=== PATIENT | female | born 1965 | race Caucasian/White ===

== ENCOUNTER 2017-03-16 09:22 | Inpatient (IN) | payer OTHER ==
[~2017-03-16] VITALS: Ht 167.6 cm; Wt 137.5 kg
[2017-03-16] VITALS (36 sets, daily range): BP systolic 78–143; BP diastolic 44–97
--- NOTE | ~2017-03-16 | PR ---
[place], [place] PROGRESS NOTE NAME: JEROME WIGGINS UNIT #: [id number] ROOM: 528 DOCTOR: MARIA INES STERN MD BIRTHDATE: [birth year] DOS: 03/23/2017 SUBJECTIVE: She was seen and examined on 03/23/2017, currently ambulating using oxygen supplementation, respiratory symptoms continue to improve progressively. Denies symptoms of chest pain, abdominal pain. The patient underwent biopsy of the left tongue ulcerations successfully by Dr. Lake. She has not been noted with any postoperative complications. OBJECTIVE: VITAL SIGNS: For the patient which has been recorded showed the temperature noted normal, respiratory rate 20, heart rate 81, blood pressure 140/73-148/89. Pulse oxygen saturation of the patient recorded on 3 liters canula 98% saturation. HEENT: No acute change. NECK: Supple. CARDIOVASCULAR: S1, S2 audible. LUNGS: The patient was noted without any wheezing or crackles. ABDOMEN: Soft, nontender. LABORATORY DATA: Chest x-ray done this morning, the patient was personally reviewed, shows continued improvement. The patient was noted in the right upper lung consolidation progressively with a small infiltration remains. No other acute abnormalities were noted. IMPRESSION: 1. The patient has resolving acute pneumonia, mass-like lesion involving the right upper lobe and the superior subsegment of the right lower lobe. 2. Improving acute hypoxic respiratory failure as well. PLAN OF TREATMENT: The Solu-Medrol dose has been already decreased for the patient. Continue current bronchodilators, antibiotics, which were already adjusted based on the culture results. Other supportive therapy, plan and management as in progress. Usual care and treatments. [place], [place] PROGRESS NOTE NAME: JEROME WIGGINS UNIT #: [id number] ROOM: 528 DOCTOR: MARIA INES STERN MD BIRTHDATE: [birth year] MARIA INES ROGERS MD CM:PNTRANS [phone] MARIA INES MAYER MD 03/24/17211 interface
--- NOTE | ~2017-03-16 | PR ---
[place], [place] PROGRESS NOTE NAME: JEROME WIGGINS [facility] #: [id number] UNIT #: [id number] ROOM: 528 DOCTOR: DEJUAN BECKHAM MD BIRTHDATE: [birth year] DOS: 03/24/2017 SUBJECTIVE: The patient is doing better. Her lesion in the left tongue states is feeling much better. She also had a bronchoscopy done, reports are pending. REVIEW OF SYSTEMS: HEENT: No trouble swallowing. No double vision. No loss of vision. No pain. ENT AND RESPIRATORY: No wheeze. No change in voice. No cough. No shortness of breath. No coughing up blood. No epistaxis. CARDIOLOGIC: No chest pain. No dizziness. No irregular heartbeat. No leg edema. No palpitations. No shortness of breath. HEMATOLOGIC AND LYMPH: No past transfusion. No fatigue. No loss of appetite. No easy bruising. GASTROENEROLOGIC: No change in bowel habits. No vomiting blood. No abdominal cramping. No nausea. No vomiting. No diarrhea. No constipation. No blood in stool. FEMALE REPRODUCTIVE: No dyspareunia. No pelvic pain. MUSCULOSKELETAL: No back pain. No muscle pain or weakness. No tingling/numbness. UROLOGIC: No pain with urination. No difficulty urinating. No frequent urination. NEUROLOGIC: No burning pain in feet. No trouble with coordination. No loss of consciousness. No headache. No tingling/numbness. No memory loss. PHYSICAL EXAMINATION: GENERAL: Pleasant woman in no apparent distress. VITAL SIGNS: Stable. She is afebrile. HEENT: Normocephalic, atraumatic. NECK AND THYROID: Supple. No JVD, thyromegaly, or lymphadenopathy. HEART: Normal S1, S2. Regular rate and rhythm. LUNGS: Clear to auscultation and percussion. ABDOMEN: Soft. Nontender, nondistended. Bowel sounds present. EXTREMITIES: Normal ROM. No clubbing. No edema. LABORATORY DATA: White count of 6.2, hemoglobin 8.9, hematocrit 28.9, platelet count of 181,000. From March 22, EGFR more than 60, sodium 139, potassium 3.5, chloride 101, bicarb 35, calcium 8.0. 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 Lesion of the left tongue is still pending. TIBC of 313, iron of 42, saturation 13. ASSESSMENT: 1. Component of iron deficiency anemia. 2. Status post biopsy of the left side of the tongue. 3. Status post bronchoscopy. 4. Right-sided pneumonia. PLAN: We will wait for overall condition to improve. She will continue antibiotics and going to a half-way for that. We will be also starting her on iron pills to take it twice a day. Once overall condition improves and she [place], [place] PROGRESS NOTE NAME: JEROME WIGGINS UNIT #: [id number] ROOM: 528 DOCTOR: DEJUAN BECKHAM MD BIRTHDATE: [birth year] still has lymph nodes in the neck, a CT scan will be done. Ample time was given to the patient to ask me questions. We will follow. DEJUAN BECKHAM MD CM:PNTRANS [phone] DEJUAN BECKHAM MD 03/25/17220 interface
--- NOTE | ~2017-03-16 | CON ---
[place], [place] REPORT OF CONSULTATION NAME: JEROME WIGGINS [facility] #: [id number] UNIT #: [id number] ROOM: [facility] DOCTOR: THOMAS HERRERA MD BIRTHDATE: [birth year] DOS: 03/17/2017 ROOM: [facility] 1. ATTENDING PHYSICIAN: Dr. Landaverde. REASON FOR CONSULTATION: Tongue ulceration. HISTORY OF PRESENT ILLNESS: The patient is a 52-year-old female who was admitted to [facility] because of severe pneumonia. She is currently in the intensive care unit. The patient is receiving antibiotic therapy for her pneumonia and it was noted that she has an ulceration of her tongue. Consultation is requested because of this finding. The patient has a past history of a large cell lymphoma. PAST MEDICAL HISTORY: COPD, hypertension, chronic back pain, history of large cell lymphoma and history of major depression. CURRENT MEDICATIONS: Solu-Medrol, Zithromax, Zosyn, Prilosec, Zocor, vancomycin, albuterol. ALLERGIES: HYDROCODONE AND ACETAMINOPHEN. PHYSICAL EXAMINATION: GENERAL: The patient is awake, alert and oriented. VITAL SIGNS: Temperature 100.0, blood pressure 124/79, respiratory rate 13, pulse rate 91. HEENT: Examination of the oral cavity shows a 3-4 cm ulcerated area in the left lateral oral tongue anterior two-thirds. Nose is clear. Ear is clear. NECK: Shows no palpable adenopathy. IMPRESSION: Tongue ulceration. PLAN: The patient will be scheduled for biopsy of this tongue ulceration next week in the operating room. Case discussed with nursing and the patient. Thank you for this consultation. THOMAS HERRERA MD CM:CONSTR:REPORT OF CONSULTATION 1743 03/17/17 1808 interface
--- NOTE | ~2017-03-16 | PR ---
[place], [place] PROGRESS NOTE NAME: JEROME WIGGINS [facility] #: [id number] UNIT #: [id number] ROOM: 528 DOCTOR: JENN VILLEDA MD BIRTHDATE: [birth year] DOS: 03/24/2017 SUBJECTIVE: The patient is doing fine without any complaint. Denies any chest pains, palpitations, she had some diarrhea, which is resolved with Lomotil. OBJECTIVE: VITAL SIGNS: Graphic trend shows blood pressure 130/68, pulse is 78, respirations 20, temperature 98.6. LUNGS: Clear. HEART: Regular. ABDOMEN: Obese. EXTREMITIES: Without any edema. LABORATORY DATA: White cell count is normal at 6.2, hemoglobin 8.9, hematocrit 28.9, platelets normal. I do not have the basic metabolic panel yet this morning. ASSESSMENT AND PLAN: 1. Acute respiratory failure, resolved. 2. Right-sided pneumonia, improving with normal white cell count. 3. Chronic obstructive pulmonary disease with acute exacerbation, improving. 4. Iron deficiency anemia, medication started. 5. Diarrhea, most likely antibiotic induced. 6. History of lymphoma. 7. Lesion of the tongue, which was biopsied. No report available yet. The patient to go to [facility] today for physical therapy and IV antibiotics. JENN VILLEDA MD CM:PNTRANS [phone] JENN VILLEDA MD 03/25/17 0042 interface
--- NOTE | ~2017-03-16 | PR ---
[place], [place] PROGRESS NOTE NAME: JEROME WIGGINS [facility] #: [id number] UNIT #: [id number] ROOM: 528 DOCTOR: JENN VILLEDA MD BIRTHDATE: [birth year] DOS: 03/23/2017 SUBJECTIVE: The patient is doing fine without any complaints. She underwent her tongue biopsy yesterday. OBJECTIVE: VITAL SIGNS: Graphic trend shows a pressure of 148/73, pulse of 80, respirations 20, temperature 98.2. LUNGS: Diminished breath sounds. HEART: Regular. ABDOMEN: Obese, soft. EXTREMITIES: Without any edema. ASSESSMENT AND PLAN: 1. Right side pneumonia, multifocal, improving clinically as well as radiologically. PICC line was placed and the patient to go to rehab center for continued IV antibiotics. 2. Lesion on the tongue, status post biopsy yesterday. 3. Benign hypertension, controlled. Norvasc was restarted. 4. Chronic obstructive pulmonary disease with centrilobar emphysema with exacerbation, improved. The patient is no longer requiring oxygen supplementation. 5. Acute hypoxic respiratory failure. This has resolved. The patient hopefully can be discharged today. JENN VILLEDA MD CM:PNTRANS [phone] JENN VILLEDA MD 03/24/17 0112 interface
--- NOTE | ~2017-03-16 | PR ---
[place], [place] PROGRESS NOTE NAME: JEROME WIGGINS UNIT #: [id number] ROOM: 528 DOCTOR: DEJUAN BECKHAM MD BIRTHDATE: [birth year] DOS: 03/22/2017 SUBJECTIVE: The patient had a biopsy of the left inguinal area because of the left tongue ulceration, which she tolerated very well. She had a bronch done on Tuesday. PHYSICAL EXAMINATION GENERAL: She is a very pleasant woman in no apparent distress. VITAL SIGNS: Blood pressure is 120/80, heart rate 76, respirations 14. HEENT: Normocephalic, atraumatic NECK AND THYROID: Supple. No JVD, thyromegaly, or lymphadenopathy. HEART: Normal S1, S2. Regular rate and rhythm. LUNGS: Clear to auscultation and percussion. ABDOMEN: Soft. Nontender, nondistended. Bowel sounds present. EXTREMITIES: Normal ROM. No clubbing. No edema. LABORATORY DATA: White count 4.2, hemoglobin 8.7, hematocrit 28.4, platelet count 147,000. BMP of the patient with normal creatinine. Chest x-ray showed resolving pneumonia in the right upper lobe. ASSESSMENT: 1. Status post left inguinal biopsy. 2. Status post bronchoscopy. 3. Improving pneumonia. 4. History of non-Hodgkin lymphoma in 2003, status post chemotherapy with cure. 5. Mild Leukopenia. 6. Anemia of neoplastic disorder. PLAN: We will wait for the biopsy of the tongue as well as the bronch. In the meantime, we will get anemia workup, review peripheral smears. Depending on the biopsy further intervention. She will also need a PET scan. She may be going to for 2 weeks of antibiotic therapy. She will see me as outpatient and depending on that, further intervention discussed. We will follow. Ample time was given for the patient to ask me questions. [place], [place] PROGRESS NOTE NAME: JEROME WIGGINS UNIT #: [id number] ROOM: 528 DOCTOR: DEJUAN BECKHAM MD BIRTHDATE: [birth year] DEJUAN BECKHAM MD CM:PNTRANS [phone] DEJUAN BECKHAM MD 03/23/17 0310 interface
--- NOTE | ~2017-03-16 | CON ---
[place], [place] REPORT OF CONSULTATION NAME: JEROME WIGGINS [facility] #: [id number] UNIT #: [id number] ROOM: [facility] DOCTOR: DEJUAN BECKHAM MD BIRTHDATE: [birth year] DOS: 03/21/2017 HISTORY OF PRESENT ILLNESS: The patient is a pleasant 52-year-old [place] woman, who I remember had a history of non-Hodgkin lymphoma and was treated by me with cure, lost for followup for the last one month, and was seen by Dr. Landaverde' office complaining of increasing shortness of breath, cough, with increased sputum production and hemoptysis. This has been going on for the last 1 month and thought it will get better until she started having hemoptysis and came to see here in the office. Subsequently, she was admitted. Further workup revealed that she has got a lesion and further CT of the chest showed that she has excessive pneumonia in the right side of the lung, has also a lesion in the tongue for which she is ____ biopsy and was consulted for further evaluation and management. PAST MEDICAL HISTORY: Large cell lymphoma, status post chemotherapy, cured in 2009; history of major depression; COPD with heavy nicotine abuse; quit smoking about 2 years ago; history of benign hypertension; chronic back pain with significant hospitalization in 2014 with shortness of ____ and acute respiratory failure; chronic back pain; and benign hypertension. MEDICATIONS: ____ amlodipine, calcium, duloxetine, gabapentin, Prevacid, methadone, naproxen, Percocet, Pravachol, and ____. SOCIAL HISTORY: Nonsmoker, no alcohol or drug abuse. REVIEW OF SYSTEMS: CONSTITUTIONAL: No chills. No fatigue. No fever. No loss of appetite. No night sweats. No weakness. No weight loss. HEENT: No trouble swallowing. No loss of smell. No loss of hearing. No double vision. No pain. No discharge. ENT AND RESPIRATORY: No wheeze. No sore throat. No change in voice. No hearing loss. No nose bleed. No cough. No trouble breathing through nose. No shortness of breath. No coughing up blood. No epistaxis. CARDIOVASCULAR: No chest pain. No dizziness. No irregular heartbeat. No leg edema. No pain in legs while walking. No palpitations. No shortness of breath. DERMATOLOGIC: No acne. No hives. No laceration. No mole. No rash. ENDOCRINE: No cold intolerance. No diabetes. No fatigue. No hot flashes. No polydipsia. No polyuria. No urinating frequently. No weight loss. HEMATOLOGIC AND LYMPH: No fatigue. No easy bruising. GASTROENTEROLOGIC: No change in bowel habits. No indigestion. No frequent bloating. No vomiting blood. No abdominal cramping. No nausea. No heartburn. No vomiting. No abdominal pain. No dysphagia. No diarrhea. No constipation. No blood in stool. FEMALE REPRODUCTIVE: No vaginal itching. No difficulty urinating. No heavy periods. No dyspareunia. No sexually active. No dysmenorrhea. No pelvic pain. No breast pain. No nipple discharge. No abnormal vaginal discharge. No hot flashes. MUSCULOSKELETAL: No back pain. No muscle pain or weakness. No neck pain. No tingling/numbness. No swelling/bruising. No osteoporosis treatment. [place], [place] REPORT OF CONSULTATION NAME: JEROME WIGGINS UNIT #: [id number] ROOM: [facility] DOCTOR: DEJUAN BECKHAM MD BIRTHDATE: [birth year] OPHTHALMOLOGIC: No double vision. No diminished vision. No loss of vision. UROLOGIC: No dysuria. No frequent nighttime urination. No irregular periods. No pain with urination. No difficulty urinating. No blood in urine. No frequent urination. No urinary incontinence. NEUROLOGIC: No loss of sensation in specific body area. No vertigo. No burning pain in feet. No trouble with balance. No trouble with coordination. No loss of consciousness. No loss of feeling/power. No confusion. No headache. No tingling/numbness. PSYCHOLOGIC: No tinnitus. No headaches. No shortness of breath. No weight decrease. No nausea. No vomiting. No abdominal discomfort. No constipation. No diarrhea. No depression. No anxiety. PHYSICAL EXAMINATION: GENERAL: She is a pleasant woman, in no apparent distress. VITAL SIGNS: Stable. She is afebrile. HEENT: Oral mucosa appears intact. The external ears are normal in appearance. Nares are patent without lesions, exudates, erythema, or inflammation. Tongue is symmetrical. Uvula is midline. NECK AND THYROID: Neck supple without palpable masses. Trachea is midline. No thyromegaly. No carotid bruit or JVD. BREASTS: Normal. Nipples unremarkable. No drainage. No lumps felt on either side. HEART: Normal S1, S2, without significant murmur, rub, or gallop. LUNGS: Clear to auscultation and percussion with good air entry bilaterally. The patient is breathing easily without the use of accessory muscles. Diaphragmatic excursions are intact. ABDOMEN: No costovertebral angle tenderness. Soft. No organomegaly or masses. Nontender. No hernias present. Liver and spleen are not palpable. LYMPHATIC: No adenopathy noted in the cervical, supraclavicular, axillary, or inguinal regions. NEUROLOGIC: Nonfocal. Oriented to person, place, and time. MENTAL STATUS: Appropriate for mood and affect. PERIPHERAL PULSES: No varicosities. Femoral and pedal pulses are palpable. EXTREMITIES: Without cyanosis, clubbing, or edema. No gross anomalies. LABORATORY DATA: White count of 3.7, hemoglobin 8.5, hematocrit 27.7, platelet count 120,000. Peripheral smear showed metamyelocytes, monocytes. Glucose of 149, BUN of 19, EGFR more than 60, sodium 140, potassium 4.6, chloride 99, bicarb 35, SGOT is 26, SGPT 35, alkaline phosphatase 43. RADIOLOGY: CT of the chest showed very extensive right upper lobe pneumonia ____ involvement of the superior segment right lower lobe and then ____ more hazy opacity in both lower lobes. Echocardiogram showed LEV of 55%. ASSESSMENT: 1. Status post acute respiratory failure, status post bronchoscopy. 2. Excessive pneumonia in the right side of the lung or multiple IV antibiotics. 3. Abnormal lesion on the underside of the tongue with lymphadenopathy. 4. History of large cell lymphoma, status post chemotherapy with cure in 2009 [place], [place] REPORT OF CONSULTATION NAME: JEROME WIGGINS UNIT #: [id number] ROOM: [facility] DOCTOR: DEJUAN BECKHAM MD BIRTHDATE: [birth year] or before. PLAN: She is going to get a biopsy by Dr. Lake. We will wait for the biopsy to come back. In the meantime, we will review the CAT scans. May need a CT of the neck, PET scan, etc., depending on that, further intervention. She has abnormal peripheral smear. We will keep a close watch at this time. I had a detailed discussion with the patient about it, seemed to understand it. Ample time was given to the patient to ask me questions. We will follow. Thanks for consulting and letting me participate in the care of this interesting patient. DEJUAN BECKHAM MD CM:CONSTR:REPORT OF CONSULTATION 0834 03/21/17 1144 interface
--- NOTE | ~2017-03-16 | CON ---
[place], [place] REPORT OF CONSULTATION NAME: JEROME WIGGINS UNIT #: [id number] ROOM: [facility] DOCTOR: ALLYSSA POPECRIS BIRTHDATE: [birth year] DOS: 03/22/2017 HISTORY OF PRESENT ILLNESS: The patient with known history of non-Hodgkin's lymphoma treated by Dr. Perry apparently was having a PICC line placed and after that it went into the RV and patient was having runs of ventricular tachycardia and it was very positional and we were consulted and Dr. Syed was notified, was continuous absorption process operator. The central line has been pulled back and she had some PVCs, but no more ventricular tachycardia. Currently, the patient she had all the workup for her heart with a stress test within the last 2 years and was normal and her ejection fraction was done recently showed an EF of 50%-55%. PAST MEDICAL HISTORY: ____ chemotherapy, history of major depression, COPD, nicotine abuse, history of hypertension, chronic back pain, significant hospitalizations. MEDICATIONS: Amlodipine, gabapentin, Prevacid, methadone, Naprosyn, Percocet, Pravachol. SOCIAL HISTORY: Nonsmoker, now nonalcohol. REVIEW OF SYSTEMS: CONSTITUTIONAL: No fever, no chills. RESPIRATORY: No shortness of breath. CARDIOVASCULAR: No chest discomfort. No dizziness dermatologically. ENDOCRINE: Intact. NEUROLOGIC: No syncope. PHYSICAL EXAMINATION: GENERAL: She is not in acute distress. VITAL SIGNS: Blood pressure is 130/80. She is in sinus rhythm. HEENT: Unremarkable. NECK: Supple, no JVD. LUNGS: Diminished breath sounds. HEART: Sounds are regular. ABDOMEN: Soft, nontender. NEUROLOGICAL: Appears to be stable. LABORATORY DATA: Electrolytes are within normal limits. EKG shows sinus rhythm with nonspecific ST-T changes. She did have runs of VT when probably irritating to the central line ____ into the right ventricle. IMPRESSION: Status post acute respiratory failure excessive pneumonia, ventricular tachycardia, probably induced by Catheter. RECOMMENDATIONS: I agree with pulling back on the central line. Monitor the heart rate and blood pressure closely becomes symptomatic, we might have to repeat a stress test because of tobacco abuse and we will follow up. [place], [place] REPORT OF CONSULTATION NAME: ROSALIEJEROME Nuñez UNIT #: [id number] ROOM: [facility] DOCTOR: CRIS SPIVEY MD BIRTHDATE: [birth year] CRIS SPIVEY MD CM:CONSTR:REPORT OF CONSULTATION 0819 03/22/17 0940 interface
--- NOTE | ~2017-03-16 | WRIGHTHP ---
[place], [place] PATIENT HISTORY AND PHYSICAL EXAM NAME: JEROME WIGGINS [facility] #: [id number] UNIT #: [id number] ROOM: [facility] DOCTOR: JENN VILLEDA MD BIRTHDATE: [birth year] DATE OF ADMISSION: 03/16/17 HISTORY OF PRESENT ILLNESS: The patient is 52 years old. The patient comes to the office with complaints of minimal shortness of breath, cough, increased sputum production and hemoptysis. The shortness of breath and cough has been going on for a couple of weeks; the hemoptysis just started the day prior to this being seen in the office. She also was quite dizzy and lightheaded and had a hard time ambulating into the office. On examination, her pulse ox was in the low 80s, blood pressure was normal in the office, was admitted. Evaluation revealed that the patient may have acute hypoxic respiratory failure with acute respiratory distress, possible pneumonia with hemoptysis, and so the patient was admitted to the hospital. After admission to the hospital, she was admitted initially to the 5th floor where she became quite hypotensive and was transferred to the ICU and diagnosed with sepsis. After being moved to the ICU, was found to be quite hypotensive, was started on Levophed and increased the IV fluid rate, was also placed on multiple antibiotics. A CT of the chest was done, which showed extensive pneumonia of the right side of the lung. This morning is feeling much better, still does not feel completely up to par, but better than yesterday. Denies having any chest pains or palpitations. She did have a high-grade fever during the night. Unfortunately, I could not give her any Motrin because of her acute renal failure. She does not have any leg edema and has not had any hemoptysis since admission. PAST MEDICAL HISTORY: 1. Significant for hospitalization in 2014 with hoarseness of voice and acute respiratory failure. 2. COPD with heavy nicotine abuse, she has quit smoking about 2 years ago. 3. Benign hypertension. 4. Chronic back pain. 5. Lymphoma, large cell lymphoma that was treated in 2009. 6. History of negative workup for chest pain in 2013. 7. Major depression. MEDICATIONS: Lotrel. MEDICATIONS: Amlodipine, calcium, duloxetine, gabapentin, Prevacid, methadone, naproxen, Percocet, Pravachol, tizanidine. SOCIAL HISTORY: Nonsmoker, does not use any alcohol right now, does not smoke either. PHYSICAL EXAMINATION: VITAL SIGNS: Graphic trend shows a pressure ____/60 this morning, pulse of 94, respirations 16, temperature 98.7. LUNGS: Diminished breath sounds. HEART: Regular. ABDOMEN: Obese, soft. EXTREMITIES: Without any edema. LABORATORY DATA: This admission shows a glucose 155, BUN 33, creatinine 2.33. Electrolytes were normal. WBC count is 8.8, hemoglobin 10.2, hematocrit 32.7, platelets 97. CT of the chest done shows extensive pneumonia on the ____ side of the lung granado. ABG showed a pH of 7.3, pCO2 of 43, pO2 of 69.6, oxygen saturation 92.4. [place], [place] PATIENT HISTORY AND PHYSICAL EXAM NAME: JEROME WIGGINS UNIT #: [id number] ROOM: [facility] DOCTOR: JENN VILLEDA MD BIRTHDATE: [birth year] ASSESSMENT AND PLAN: 1. Acute hypoxic respiratory failure, doing better on oxygen supplementation. 2. Extensive pneumonia on the right side of the lung with sepsis and hypotension. Blood cultures, sputum cultures, atypical studies have all been ordered. Consultation with Dr. Hayward and multiple IV antibiotics have been started. 3. Chronic obstructive pulmonary disease, oxygen dependent. Continue supplementation, does not have an exacerbation. 4. Chronic pain syndrome. Continue pain medications. 5. Acute renal failure. Vigorous IV fluids have been ordered, probably from acute tubular necrosis from hypotension, we will avoid all nephrotoxic medications. JENN VILLEDA MD CM:HISPHYS:PATIENT HISTORY AND PHYSICAL EXAMINATION [phone] JENN VILLEDA MD 03/17/17 1409 LAKEISHA SANZ.R
--- NOTE | ~2017-03-16 | DS ---
[place], [place] DISCHARGE SUMMARY NAME: JEROME WIGGINS [facility] #: [id number] UNIT #: [id number] ROOM: 528 DOCTOR: JENN VILLEDA MD BIRTHDATE: [birth year] DOS: 03/24/2017 DIAGNOSES: 1. Acute hypoxic respiratory failure. 2. Extensive pneumonia, right side of the lung. 3. Chronic obstructive pulmonary disease with acute exacerbation. 4. Lesion of the tongue, status post biopsy. 5. Acute kidney injury. 6. Benign hypertension. 7. Chronic back pain. 8. History of large cell lymphoma. 9. Major depression, recurrent, moderate. MEDICATIONS: On discharge will be Rocephin 1 g IV daily, DuoNeb q.4, prednisone 20 daily for 3 days, 15 daily for 3 days, 10 daily for 3 days, 5 daily for 3 days and discontinued, gabapentin 400 t.i.d., Pravachol 20 daily, methadone 10 t.i.d., Percocet 5 t.i.d. p.r.n., duloxetine 60 daily, Lotrel 5/20 one tablet daily, tizanidine 4 mg daily p.r.n. for muscle spasms, (lansoprazole) Prevacid 30 b.i.d., Os-Rogelio 500 mg 3 times a day. Naprosyn has been discontinued. Please do not start the patient on any nonsteroidals. Iron 325 mg daily. HOSPITAL COURSE: This patient is 52 years old, comes into the office with complaints of increasing shortness of breath and dizziness. Please refer to H and P for details. She was admitted to the hospital, diagnosed with right-sided pneumonia extensive. The patient was placed on IV antibiotics. The patient became quite hypotensive and appeared to be in sepsis, was transferred to the ICU where she remained for the next several days on multiple IV antibiotics. Consultation with Dr. Hayward was obtained. The patient's sputum cultures have come back negative. Bronchoscopy and bronch cultures were also come back negative. With antibiotics, there is steady improvement in her pneumonia, both clinically as well as radiologically. The patient after the bronchoscopy developed acute respiratory failure and had to be intubated and was on a ventilator for about 24 hours. She was extubated and continues to do fine without any problems. The patient has a lesion on her tongue with lymphadenopathy. Dr. Zipfel was consulted. A biopsy was performed. I do not have the results of the biopsy yet. The patient has a history of lymphoma, was seen by Dr. Perry was diagnosed with iron deficiency anemia, iron supplements have been started. Social service has been consulted for discharge planning. The patient will require IV antibiotics for another 7 days along with PT, OT and the patient to go to [facility] for that. The patient's diet is regular. She also developed acute kidney injury. Kidney functions improved with IV fluids and also discontinuation of nephrotoxic medications. The patient's kidney function is back to normal, but should avoid nonsteroidals in the future. The patient to see Dr. Lake and Dr. Hayward as an outpatient as well as the [place], [place] DISCHARGE SUMMARY NAME: JEROME WIGGINS UNIT #: [id number] ROOM: 528 DOCTOR: JENN VILLEDA MD BIRTHDATE: [birth year] Clinic as an outpatient. JENN VILLEDA MD CM:DISCHARG [id number] JENN VILLEDA MD 03/24/17 0907 interface
--- NOTE | ~2017-03-16 | PR ---
[place], [place] PROGRESS NOTE NAME: JEROME WIGGINS [facility] #: [id number] UNIT #: [id number] ROOM: 528 DOCTOR: GORDON PERSAUD MD BIRTHDATE: [birth year] DOS: 03/23/2017 SUBJECTIVE: She had ventricular tachycardia on the monitor because of the tip of the PICC line was in the right ventricle, which was pulled back and ectopy seized. She has not had any breathing difficulty, and without any chest pain or palpitations. No chills, but she has a cough and had expectorated blood a few days ago. Dr. Hayward performed a bronchoscopy today. OBJECTIVE: GENERAL: She is moderately obese, pleasant, alert. She is not tachypneic, but has oxygen on. VITAL SIGNS: Temperature is normal at 98.2, pulse is 84 and regular, respiration 20, blood pressure 130/66. NECK: Normal JVP. LUNGS: Breath sounds are diminished with some adventitious sounds bilaterally. EXTREMITIES: No edema of the lower extremities. IMPRESSION: The patient has pneumonia and is required extended IV antibiotics and a PICC line was placed. No active cardiac problems are present at this time. I saw this patient on behalf of Dr. Lehman. GORDON PERSAUD MD CM:PNTRANS [id number] [phone] GORDON PERSAUD MD 03/24/172107 interface
--- NOTE | ~2017-03-16 | PR ---
[place], [place] PROGRESS NOTE NAME: JEROME WIGGINS UNIT #: [id number] ROOM: [facility] DOCTOR: RONAL POPEJENN BIRTHDATE: [birth year] DOS: 03/22/2017 SUBJECTIVE: The patient is not having any new complaints. During the night, she started developing some episodes of V-tach while she was lying on her side and when she laid flat her heart rate came back to normal, rhythm improved. So, the possibility was that the PICC line was irritating the LV, so the PICC line was pulled out about 5 cm and the patient's rhythm seems to improve after that. She remains without any complaints this morning. OBJECTIVE: VITAL SIGNS: Graphic trend shows a pressure 120/80, pulse of 76, respirations 14, temperature 98.2. LUNGS: Diminished breath sounds, clear. HEART: Regular. ABDOMEN: Obese, soft. EXTREMITIES: Without any edema. LABORATORY DATA: Chest x-ray shows improvement in the pneumonia. BMP this morning, glucose is 90, BUN 18, creatinine 0.68. Electrolytes were normal. WBC count is 4.2, hemoglobin 8.7, hematocrit 28.4, platelets 147. Legionella titers were negative. ASSESSMENT AND PLAN: 1. Extensive pneumonia of the right side of the lung, improving clinically as well as radiologically possibility is that this is mycoplasma infection. 2. An allergic reaction following post-bronchoscopy. Possibility that the patient developed a REACTION EITHER TO VERSED OR THE ROCURONIUM both of them have been dedicated as allergic medications for this patient and should not receive it anymore, especially since we are planning to do another procedure today. 3. History of lymphoma with negative scans recently. 4. Lesion on the tongue left side with the lymphadenopathy submandibular for biopsy today by ____, again avoid Versed and rocuronium. 5. Hypoxic respiratory failure, acute, stable and improved. The patient is getting moved to [facility] today and social service has been consulted for placement for IV antibiotics. 6. Ventricular tachycardia from the LV irritation from a PICC line. PICC line is being pulled out a few more centimeters to avoid further problems. [place], [place] PROGRESS NOTE NAME: JEROME WIGGINS UNIT #: [id number] ROOM: [facility] DOCTOR: RONAL POPE,JENN BIRTHDATE: [birth year] JENN VILLEDA MD CM:PNTRANS [phone] JENN VILLEDA MD 03/22/17 0912 interface
--- NOTE | ~2017-03-16 | PN ---
[place], [place] PROGRESS NOTE NAME: JEROME WIGGINS [facility] #: [id number] UNIT #: [id number] ROOM: [facility] DOCTOR: JENN VILLEDA MD BIRTHDATE: [birth year] DATE: 03/18/17 SUBJECTIVE: The patient is doing fine without any complaints this morning. She is scheduled for a bronchoscopy today. OBJECTIVE: VITAL SIGNS: Blood pressure is 139/83, pulse of 108, respirations 20, temperature 98.0. LUNGS: Diminished breath sounds. No wheezes, rales, or rhonchi heard today. HEART: Regular. ABDOMEN: Obese, soft. EXTREMITIES: Without any edema. I appreciate all consultants' input. ASSESSMENT AND PLAN: 1. Extensive pneumonia of the right side of the lung. Awaiting a bronchoscopy, this most likely responsible for the hemoptysis. 2. Lesion on the tongue, for biopsy by Dr. Lake next week. 3. Acute respiratory failure, hypoxic with acute respiratory distress syndrome with sepsis, which seems to be resolving. IV fluids and IV Levophed will be discontinued and the patient can be transferred out to the [facility]. JENN VILLEDA MD CM:PNTRANS 0720 [id number] JENN VILLEDA MD 03/21/17 1420 LAKEISHA SANZ.R
--- NOTE | ~2017-03-16 | PR ---
[place], [place] PROGRESS NOTE NAME: JEROME WIGGINS UNIT #: [id number] ROOM: [facility] DOCTOR: KEN MAYER MDMARIA INES BIRTHDATE: [birth year] DOS: 03/22/2017 PULMONARY FOLLOWUP NOTE SUBJECTIVE: The patient is noted on 03/22/2017. The patient has been doing well at this time with minimal symptoms of shortness of breath. Denies symptoms of chest pain or any abdominal pain. The patient denies any symptoms of hemoptysis. She has been planned for assessment of the ____ this patient and other areas for possible biopsy for suspected malignancy. The patient to be done by Dr. Lake. OBJECTIVE: VITAL SIGNS: For the patient which has been recorded showed the temperature noted normal, respiratory 14, heart rate 76, blood pressure 120/80. Pulse oxygen saturation noted on ____ liters nasal cannula 95% saturation. HEENT: Showed no acute change. NECK: Supple. CARDIOVASCULAR: S1, S2 audible. LUNGS: Noted without any wheezing or crackles. ABDOMEN: Soft, nontender. LABORATORY DATA: The patient's CBC today: WBC count 4.2, hemoglobin 8.7, hematocrit 28.4, platelet count 147,000. The BMP of the patient noted normal BUN and creatinine, CO2 35. The chest x-ray that was done yesterday for this patient was noted with resolving pneumonia in the right upper lobe. IMPRESSION: 1. Improving acute pneumonia, rule out any underlying malignancy as well. 2. History of non-Hodgkin lymphoma in 2003 which has been treated with chemotherapy, radiation to the spine. 3. Possible malignancy involving the time. 4. Leukopenia and anemia. 5. Acute respiratory failure, which is improving. PLAN OF TREATMENT: Reduce the dose of Solu-Medrol. We will discontinue the vancomycin based on the culture results. Continuation of the IV Zosyn for this patient and the vancomycin for the remaining duration of the pneumonia management. Oxygen supplementation to be titrated to maintain a saturation of 92% or greater. Usual care. Supportive therapy, plan of management and other care. Usual treatment. [place], [place] PROGRESS NOTE NAME: JEROME WIGGINS UNIT #: [id number] ROOM: [facility] DOCTOR: MARIA INES STERN MD BIRTHDATE: [birth year] MARIA INES ROGERS MD CM:CELESTINO [id number] MARIA INES MAYER MD 03/22/17 0958 interface
--- NOTE | ~2017-03-16 | PR ---
[place], [place] PROGRESS NOTE NAME: JEROME WIGGINS [facility] #: [id number] UNIT #: [id number] ROOM: [facility] DOCTOR: KEN MAYER MD,MARIA INES BIRTHDATE: [birth year] DOS: 03/21/2017 SUBJECTIVE: She was successfully liberated from mechanical ventilator 24 hours after the bronchoscopy completed. She has been continuing intravenous antibiotics. The patient has been started BiPAP post-liberation of mechanical ventilator. She denies symptoms of chest pain or any abdominal pain. The patient was planned for ENT evaluation for the lesion on the tongue for this patient with a biopsy done by Dr. Lake. OBJECTIVE: VITAL SIGNS: Shows the temperature noted low grade 99.6 degree Fahrenheit to normal temperature, respiratory rate 14-18, heart rate of 77-88, blood pressure 126/61-125/77. Intake for the patient is 1810, output was 3700 mL, negative fluid balance was noted as 1800 mL. The pulse oxygen saturation was recorded on 3 liters nasal cannula 96% saturation. HEENT: Chronic obesity. NECK: Supple. CARDIOVASCULAR SYSTEM: S1, S2 is audible. LUNGS: The patient was noted with decreased breath sounds noted in the lungs bilaterally. ABDOMEN: Soft, obese, nontender. LABORATORY DATA: CBC of the patient this morning, WBC count 3.7, hemoglobin 8.5, hematocrit 27.7, platelet count 120,000. The antigen 1 antibody was negative. DE for the patient dilution of 1:320 noted positive with homogenous distribution. CMP of the patient that was done this morning shows glucose 149, BUN and creatinine was normal. Carbon dioxide 35. Vancomycin trough level was 11.7. Culture of the bronchial washing of the patient was identified, light growth of yeast. IMPRESSION: 1. The patient who has been currently treated at this time with a large pneumonia. The patient involving the right upper lobe as well as the superior segment of the right lower lobe. The culture was noted as light growth of yeast for this patient. 2. Evidence of pancytopenia as well. 3. Past history of non-Hodgkin lymphoma which has been treated many years ago. 4. Lesion on the tongue for this patient. Possible malignancy patient other at this time being investigated. 5. Acute on chronic hypoxic and hypercapnic respiratory failure, improving. The patient's current medical management. PLAN OF TREATMENT: The patient is currently being planned for the PICC line. With that x-ray will be done, which will be assessed. The patient progression of the pneumonia. In the meantime, continue other previous treatment, therapy, plan of management and care. Usual care. Supportive therapy, plan of management and other treatments. [place], [place] PROGRESS NOTE [facility] [id number] UNIT #: [id number] ROOM: [facility] DOCTOR: MARIA INES STERN MD BIRTHDATE: [birth year] MARIA INES ROGERS MD CM:CELESTINO [phone] MARIA INES MAYER MD 03/21/172128 interface
--- NOTE | ~2017-03-16 | PR ---
[place], [place] PROGRESS NOTE NAME: JEROME WIGGINS [facility] #: [id number] UNIT #: [id number] ROOM: [facility] DOCTOR: MANNY JANE MD BIRTHDATE: [birth year] DOS: 03/19/2017 SUBJECTIVE: The patient is off mechanical ventilation, breathing better. OBJECTIVE: VITAL SIGNS: Blood pressure 120/60, heart rate of 100 beats per minute, breathing 18 times per minute, temperature of 98.7 degrees Fahrenheit. GENERAL APPEARANCE: The patient is alert and oriented x 3, in no visible distress, except for generalized weakness and obesity. HEENT AND NECK: Exam within normal limits. CARDIOVASCULAR SYSTEM: Heart rate is regular in rate and rhythm. S1 and S2 normally audible. LUNGS: Clear to auscultation. ABDOMEN: Soft, nontender. No obvious organomegaly. Bowel sounds are present. EXTREMITIES: Without significant cyanosis or edema. IMPRESSION: 1. The patient with acute hypoxemic respiratory failure. She is off mechanical ventilation after bronchoscopy. 2. Pneumonia involving the right upper lung, being treated with antibiotics and being followed by irb compliance coordinator, Dr. Hayward. 3. Exacerbation of COPD with shortness of breath, improving with treatment. 4. Chronic pain syndrome, patient on pain meds. 5. Acute renal failure, resolved, BUN and creatinine are back to baseline. 6. Benign essential hypertension. Blood pressure being monitored and controlled. MANNY JANE MD CM:PNTRANS [phone] MANNY JANE MD 03/19/172058 interface
--- NOTE | ~2017-03-16 | CON ---
[place], [place] REPORT OF CONSULTATION NAME: JEROME WIGGINS [facility] #: [id number] UNIT #: [id number] ROOM: [facility] DOCTOR: MARIA INES STERN MD BIRTHDATE: [birth year] DOS: 03/17/2017 PULMONARY CRITICAL CARE EVALUATION AND MANAGEMENT REQUESTING PHYSICIAN: Dr. Radha Landaverde. REASON FOR CONSULTATION: For this patient was done for assessment of hemoptysis as well as hypotension and acute hypoxic respiratory failure. 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 The patient was also noted possibility of metastasis to the spine. The patient has received the chemotherapy in [address] Perry with reduction in vincristine. The patient presented to the hospital. The patient developed symptoms of having shortness of breath later on with the coughing. The coughing has been noted to be intermittent and nonproductive at times. She does complain of symptoms of shortness breath and developed coughing as the patient was hospitalized. The patient has developed hemoptysis for the patient from yesterday, which has been noted intermittently few mL at time. She has not had any further episodes of hemoptysis since this morning. She was admitted to telemetry floor. She was noted with hypotension as well as severe hypoxia as well requiring transfer to the Intensive Care Unit. After IV fluids administration for the patient, she was started on intravenous Levophed that has been continued for the patient and currently 11 mcg per kilogram per minute use. The patient's shortness of breath has been noted absent. She denies symptoms of chest pain. The patient denies any symptoms of wheezing. REVIEW OF SYSTEMS: CONSTITUTIONAL SYMPTOMS: Fatigue and tiredness noted. No symptoms of fever or chills. EYES: Denies any burning, redness, or tenderness. EARS, NOSE, NOSE, AND THROAT: No sore throat, hoarseness, otalgia, or postnasal drainage. CARDIOVASCULAR SYSTEM: Denies anginal pain, edema of the lower extremities for this patient. GASTROINTESTINAL SYMPTOMS: Denies dysphagia, nausea, vomiting, diarrhea, abdominal pain, hematemesis, melena, or hematochezia. SKIN: No lesions or rashes. MUSCULOSKELETAL SYMPTOMS: Denies acute joint pain, redness, or tenderness. CENTRAL NERVOUS SYSTEM: Denies dizziness, headache, diplopia or syncopal episodes. The remaining systems were reviewed with the patient, they were noted all negative. PAST MEDICAL HISTORY: 1. Noted with a large B cell lymphoma of the patient of the intestine questionable metastasis to the spine with the PET scan for the patient treated already with the chemotherapy reduction and vincristine for the patient in 2013. The lymphoma was diagnosed with EGD and biopsy of this patient of the stomach. [place], [place] REPORT OF CONSULTATION NAME: JEROME WIGGINS UNIT #: [id number] ROOM: [facility] DOCTOR[facility] [birth year] 2. History of chronic lower back pain. 3. Essential hypertension. 4. History of depression. 5. Moderate obesity. SOCIAL HISTORY: She has been noted with history of tobacco use for the patient since teenager up to 2 packs of cigarettes per day in the past. Denies any history of alcohol use or any illicit drug use. PAST SURGICAL HISTORY: Remembered by the patient is 1. EGD and biopsy for this patient of the stomach for the patient in October 2013. 2. MediPort insertion. 3. Cardiac catheterization. 4. Attempted biopsy of the spine for this patient, but could not be completed for the patient for movement with the pain reattempted. A biopsy was asked to be redone for this patient, but the patient refused to do so use that was in 2013. 5. Complete hysterectomy. 6. Removal of the MediPort. 7. Direct laryngoscopy, which was done in 2014 for the patient which was noted nonmalignant. 8. Past EGD and colonoscopy. FAMILY HISTORY: Was not known well. MEDICATIONS: Current administered medications were noted use of omeprazole, simvastatin, norepinephrine, Neurontin, IV Zosyn and vancomycin and other p.r.n. medications including use of the chronic medications for the pain as methadone and Percocet. DRUG ALLERGIES HISTORY: Noted allergy to the 1. VICODIN. 2. Chemotherapy for this patient as APREPITANT. Also, another chemo drug for the patient FOSAPREPITANT. PHYSICAL EXAMINATION: GENERAL: A 52-year-old -[place] female currently noted awake and alert without any distress. Height of 5 feet 6 inches, weight of 303 pounds with BMI of 48.9. VITAL SIGNS: For the patient which has been recorded showed the temperature of the patient noted as normal, the highest temperature 101.1 degrees Fahrenheit for the patient noted since admission. The respiratory of 24-13. Heart rate of 98-102, blood pressure 78/47 for the patient to 101/50. The intake for this patient is 3470 mL, output 1900 mL, positive 1.570 liters. Pulse oxygen saturation on 4 L nasal cannula was 93% saturation, later on as 88% on 4 liters. HEENT: Examination shows head was atraumatic. Eyes nonicterus. NECK: Supple and obese. CARDIOVASCULAR SYSTEM: S1, S2 is audible. LUNGS: The patient was noted with decreased breath sounds, crackles scattered [place], [place] REPORT OF CONSULTATION NAME: JEROME WIGGINS UNIT #: [id number] ROOM: [facility] DOCTOR: NIKIA STERN MDM BIRTHDATE: [birth year] in the right lung. ABDOMEN: Soft, nontender and moderate obesity. Bowel sounds present. CENTRAL NERVOUS SYSTEM: The patient's cranial nerves 2-12 intact. No focal deficits. MUSCULOSKELETAL SYMPTOMS: No deformities. SKIN: No lesions or rashes. LABORATORY DATA: The BMP of patient on 03/16 for the patient on admission, glucose 155, BUN 33, creatinine 2.33. Remaining electrolytes were normal. CBC of the patient of 03/16, WBC count 10.2, hemoglobin 32.7, platelet count 97,000, normal WBC count, 12% lymphocytes, 74% segmented neutrophils. The D-dimer is 0.50. Arterial blood gas of the patient that I ordered for this patient yesterday showed pH of 7.38, pCO2 of 43, pO2 of 69 on 6 liters nasal cannula. Arterial blood gas repeated later on pH of 7.32, pCO2 of 55.6, pO2 73.95 liters nasal cannula. BMP of the patient done this morning, BUN 34, creatinine 1.28, glucose 116. CBC of the patient this morning, hemoglobin 9.6, hematocrit 31.2, platelet count was 89,000, normal WBC count. Sputum culture of the patient was pending of the Gram stain for this patient of yesterday shows many white blood cells with few gram-positive cocci in pairs. The CT scan of the chest that was done without contrast for the patient was personally reviewed showed large area of mass-like consolidation present in the posterior subsegment of the right upper lobe as well as the superior segment of the right lower lobe with some variable density of the patient with possibly underlying mass lesion cannot be completely excluded. Also, the patient was noted with infiltration in the left lower lobe as well. Unable to assess the lymphadenopathy accurately for this patient because of lack of the IV contrast administration. Very small right pleural fluid was also seen. IMPRESSION: 1. The patient who has been currently admitted to the hospital noted with severe acute sepsis with multiorgan system involving including acute respiratory failure as well as acute kidney injury for the patient and hypotension. The source of sepsis for the patient will be considered as the lung is the main focus. The possibility of gram-positive and gram-negative infection will be considered. 2. Rule out malignancy for the patient lymphoma or others in the lung with current abnormal CT scan of the chest as well. The resolution showed completely for this patient with appropriate management. 3. Hemoptysis related to current abnormal pathology, rule out any endobronchial lesion. 4. Acute kidney injury for the patient secondary to acute sepsis for the patient, which is responding to treatment resuscitation with fluids. 5. Chronic moderate obesity. 6. 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 7. Lesion of the tongue for the patient was also described, which will require further biopsy by the ENT specialist for the patient was planned to be done next week. The lesion was described to be present in the lateral portion of the left side of the tongue for this patient, which was described to be painful and some [place], [place] REPORT OF CONSULTATION NAME: JEROME WIGGINS Joa[facility] UNIT #: [id number] ROOM: [facility] DOCTOR: NIKIA STERN MDM BIRTHDATE: [birth year] ulceration in that area. PLAN OF TREATMENT: IV fluids for the patient's supplementation to be decreased for this patient to minimize the fluid overload. Continue the vasopressor with titration to be done to maintain mean arterial pressure of 65 or greater. The bronchodilator will be continued. Monitoring results of the sputum culture and the blood cultures. The bronchoscopy planned to be done in the morning. Risks and the benefits of procedure have been discussed with the patient. DVT prophylaxis in the form of the SCDs for the patient avoiding any anticoagulation because of the hemoptysis. Monitoring the chest x-ray to be continued. Chest x-ray which was done this morning does not show any changes as compared with the previous CT scan of the chest. Supportive therapy, plan of management, and other care. The TB Gold test for the patient has been ordered. Other workup for the hemoptysis of the patient has been ordered for connective tissue disorders and other. Empirical use of the corticosteroids noninflammatory mass lesion for this patient or infiltration would be done. Further changes in treatment will be done based on progression of the illness. Continue to use the oxygen supplementation nasal cannula, use the BiPAP for the patient to manage the acute hypoxic respiratory failure if necessary. Continue to monitor kidney functions as well. Usual care. Other supportive therapy, plan of management as well. Total time for the patient's pulmonary critical care evaluation and management consultation was 35 minutes. MARIA INES ROGERS MD CM:CONSTR:REPORT OF CONSULTATION 1234 03/17/17 2019 interface
--- NOTE | ~2017-03-16 | O ---
[place], [place] OPERATIVE NOTE NAME: JEROME WIGGINS [facility] #: [id number] UNIT #: [id number] ROOM: 528 DOCTOR: HIPOLITO LAKE MD BIRTHDATE: [birth year] DOS: 03/22/2017 PREOPERATIVE DIAGNOSIS: Left anterior tongue ulceration. POSTOPERATIVE DIAGNOSIS: Left anterior tongue ulceration. PROCEDURE: Biopsy of anterior two-thirds of tongue. SURGEON: Hipolito Lake MD ANESTHESIA: General. DESCRIPTION OF PROCEDURE: The patient is being taken to the operating room for biopsy of the tongue ulceration. Following induction of general anesthesia via LMA, the patient was positioned supine on the OR table and draped in standard fashion for oral surgery. The tongue was examined and a 3-4 cm ulcerated area was present on the left anterior lateral tongue. Excisional biopsy was performed and a section of the tongue with normal mucosa was excised along with the section of the ulceration. The excised tissue was submitted to pathology for histologic analysis. Minor bleeding was controlled with electrical cautery. The defect was closed with interrupted 2-0 Vicryl suture. The patient was awakened and transported to PACU in satisfactory condition. HIPOLITO LAKE MD CM:OPRECORD:OPERATIVE NOTE [id number] HIPOLITO LAKE MD 03/23/17 1116 interface
--- NOTE | ~2017-03-16 | PR ---
[place], [place] PROGRESS NOTE NAME: JEROME WIGGINS UNIT #: [id number] ROOM: 528 DOCTOR: MARIA INES STERN MD BIRTHDATE: [birth year] DOS: 03/24/2017 PULMONARY PROGRESS NOTE SUBJECTIVE: She has been currently planned for discharge to the intermediate facility today. The patient denies symptoms of chest pain, coughing and shortness of breath. The other symptoms of the patient have improved significantly. OBJECTIVE: VITAL SIGNS: For the patient which has been recorded showed normal temperature, respiratory rate 18, heart rate 86, blood pressure 140/83-130/68. Pulse oxygen saturation recorded on 3 liters nasal cannula 95% saturation. HEENT: Showed no acute change. NECK: Supple. CARDIOVASCULAR: S1, S2 audible. LUNGS: The patient was noted without any wheezing or crackles at the present time. The breaths are noted mildly decreased bilaterally. ABDOMEN: Soft, nontender. LABORATORY DATA: CBC of the patient on 03/24/2017, hemoglobin 8.9, hematocrit 28.9, WBC count normal, platelet count was normal. progressively involving the right lung for this patient, less likely to be any mass lesion. ASSESSMENT: 1. History of non-Hodgkin lymphoma several years ago, treated with radiation and chemotherapy. 2. Left tongue ulceration of the patient, status post biopsy with pending results. PLAN OF TREATMENT: No changes from the pulmonary standpoint. Discharge planning has already been started for the patient for discharge today to the nursing facility. In the meantime, continue the previous treatment, plan of management. The patient recommended about CT scan of the chest definitely to be repeated to exclude any underlying mass lesion for the patient in about a month. [place], [place] PROGRESS NOTE NAME: JEROME WIGGINS UNIT #: [id number] ROOM: 528 DOCTOR: MARIA INES STERN MD BIRTHDATE: [birth year] MARIA INES ROGERS MD CM:PNTRANS [id number] MARIA INES MAYER MD 03/25/17 0514 interface
--- NOTE | ~2017-03-16 | PN ---
[place], [place] PROGRESS NOTE NAME: JEROME WIGGINS [facility] #: [id number] UNIT #: [id number] ROOM: [facility] DOCTOR: KEN MAYER MD,MARIA INES BIRTHDATE: [birth year] DATE: 03/18/17 PULMONARY-CRITICAL CARE EVALUATION AND MANAGEMENT NOTE SUBJECTIVE: The patient remains in intensive care unit, getting oxygen supplementation nasal cannula with hemoptysis still noted intermittently although frequent intensity has been decreased. There were no symptoms of chest pain. The patient was continued on the vasopressor which has been gradually weaned off. She denies symptoms of chest pain. She was kept n.p.o. past midnight for bronchoscopy which was planned for today for further assessment. Has a current large area of consolidation, mass lesion for this patient and hemoptysis. OBJECTIVE: VITAL SIGNS: For the patient which has been recorded showed the temperature noted 99 degrees Fahrenheit, respiratory rate 17-20, heart rate 96. The blood pressure of 97/60-118/71. Intake for the patient recorded as 4800 mL and output 3400 mL, positive 1.420 liters. Pulse oxygen saturation for the patient on 4 liters nasal cannula was 96% saturation. HEENT: Examination shows head was atraumatic and eyes nonicterus. NECK: Supple. CARDIOVASCULAR: S1, S2 audible. LUNGS: Noted without any wheezing or crackles. ABDOMEN: Soft, nontender, bowel sounds present and obese. EXTREMITIES: Shows no edema, clubbing or cyanosis. LABORATORY DATA: Culture of the sputum for this patient, final culture result shows a normal gabriela from of this month. The BMP which was done this morning, glucose 157, BUN and creatinine were normal. Potassium mildly elevated to 5.2. CBC this morning, hemoglobin 9.1, hematocrit 30.4, platelet count of 96,000. The ESR yesterday noted as 58. IMPRESSION: 1. The patient with large area of consolidation, rule out underlying mass lesion as well in the right upper lobe as well as superior segment of the right lower lobe. 2. Hemoptysis of the patient, etiology is unclear. 3. History of non-Hodgkin's lymphoma for this patient as well in 2002 and 2003 treated with chemotherapy, radiation of the spine for this patient. 4. Chronic obesity. 5. Acute severe hypoxic respiratory failure. 6. Acute sepsis for the patient with resolution of acute kidney injury for the patient as well. 7. Severe obesity with suspected obstructive sleep apnea disorder. 8. Mild hyperkalemia. PLAN OF TREATMENT: The patient was taken to the bronchoscopy. During bronchoscopy, the patient had been noted with hypoxia. She has not been noted to be effectively ventilated and was intubated successfully without any difficulty in the OR. The further procedure was completed at that time. Post completion of the bronchoscopy, the patient has been started on mechanical ventilation, assist control mode, tidal volume 650 mL, rate of 12 with 50% oxygen. Sedation was also ordered in the form of Diprivan. The NG tube for this patient at this time will be avoided since the patient has been noted with epistaxis most [place], [place] PROGRESS NOTE NAME: JEROME WIGGINS UNIT #: [id number] ROOM: [facility] DOCTOR: MARIA INES STERN MD BIRTHDATE: [birth year] likely cause of her bleeding, since there has not been bleeding noted in the endobronchial tree or any obstructive lesions. DVT prophylaxis in the form of the SCD will be continued. The thrombocytopenia which has been noticed for this patient will be monitored closely. Avoid any heparinoid products. Supportive therapy, plan of management. Continue current antibiotic combination. Usual care. Further treatment changes will be done based on the progression of the illness. Assessment and management has been discussed in detail with Dr. Radha Landaverde as well as the family members of this patient. Ventilator bundle management has been initiated. Total time for pulmonary and critical care evaluation and management for this patient for today's note was 45 minutes. MARIA INES STERN MD CM:PNTRANS [id number] MARIA INES MAYER MD 03/21/17 1554 LAKEISHA SANZ.CHENCHOR
--- NOTE | ~2017-03-16 | PR ---
[place], [place] PROGRESS NOTE NAME: [facility]IG[facility]INS [id number] UNIT #: [id number] ROOM: [facility] DOCTOR: MANNY JANE MD BIRTHDATE: [birth year] DOS: 03/20/2017 SUBJECTIVE: The patient is still short of breath, been coughing with some hoarseness of her voice since her extubation. PHYSICAL EXAMINATION: GENERAL APPEARANCE: The patient is alert and oriented x 3, in no visible distress. Generalized weakness. VITAL SIGNS: Blood pressure 141/66, heart rate 81 beats per minute, breathing 18 times per minute, temperature of 100 degrees Fahrenheit. HEENT AND NECK: Exam within normal limits. CARDIOVASCULAR SYSTEM: Heart rate is regular in rate and rhythm. S1 and S2 normally audible. LUNGS: The patient had expiratory wheezing on lung auscultation all over. ABDOMEN: Soft, nontender. No obvious organomegaly. Bowel sounds are present. EXTREMITIES: Without significant cyanosis or edema. IMPRESSION: 1. The patient with acute hypoxemic respiratory failure is off mechanical ventilation after bronchoscopy now, improving slowly in ICU. 2. Right upper lung pneumonia, being treated with antibiotics. 3. Exacerbation of chronic obstructive pulmonary disease being treated with bronchodilators, oxygen and antibiotic. 4. Chronic pain syndrome being treated with her home meds. 5. Acute renal failure, resolved with hydration. 6. Benign essential hypertension with controlled blood pressures. MANNY JANE MD CM:PNTRANS [phone] MANNY JANE MD 03/20/17 224 interface
--- NOTE | ~2017-03-16 | PR ---
[place], [place] PROGRESS NOTE [id number] UNIT #: [id number] ROOM: [facility] DOCTOR: JENN VILLEDA MD BIRTHDATE: [birth year] DOS: 03/21/2017 SUBJECTIVE: The patient is doing better post-extubation. OBJECTIVE: VITAL SIGNS: Graphic trend shows a pressure 146/90, pulse of 82, respirations 18, temperature 97.9. LUNGS: Diminished breath sounds. HEART: Regular. ABDOMEN: Obese. EXTREMITIES: Without any edema. ASSESSMENT AND PLAN: 1. Acute respiratory failure, hypoxic, following bronchoscopy. The patient was extubated the next day morning. 2. Extensive pneumonia of the right side of the lung, on multiple IV antibiotics. Sputum cultures have come back showing normal gabriela. Mycoplasma pneumoniae IgG was high, IgM so far is normal. Blood culture shows no bacterial growth. MRSA was negative. White cell count has normalized. 3. Abnormal lesion on the underside of the tongue with lymphadenopathy and a history of large cell lymphoma. The patient is to have biopsy of the ____ on Tuesday. 4. Failure to thrive, adult. The patient to have PT, OT consultation. A PICC line will be placed for continuous IV antibiotics. So, Social Service will be consulted for discharge planning to possibility of rehabilitation. JENN VILLEDA MD CM:PNTRANS [id number] JENN VILLEDA MD 03/21/17 0725 interface
--- NOTE | ~2017-03-16 | PROC NOTE ---
[place], [place] PROCEDURE NOTE NAME: JEROME WIGGINS [facility] #: [id number] UNIT #: [id number] ROOM: [facility] DOCTOR: KEN MAYER MD,MARIA INES BIRTHDATE: [birth year] DOS: 03/18/2017 PROCEDURE: Fiberoptic bronchoscopy. PREOPERATIVE DIAGNOSES: The patient with large mass-like lesion consolidation right upper lobe and the right lower lobe for this patient and hemoptysis. POSTOPERATIVE DIAGNOSES: There were no endobronchial obstructive lesions, bleeding was noted from the endobronchial tree. Bleeding was suspected for the epistaxis, which was noted for this patient during the procedure. PROCEDURE DESCRIPTION: Informed consent obtained for the patient. She was brought to the OR and placed in supine position. Conscious sedation was initially given for this patient for the conscious sedation. The patient was sedated . The bronchoscope was advanced through the airway, which was placed in the mouth. A large amount of redundant tissue noted in the oropharyngeal area. The bronchoscope was advanced through the vocal cord of the patient. The tracheal lumen shows moderate amount of mucopurulent material suctioned out to the lori level. Lori noted sharp. Right upper, right middle, right lower, left upper, lingular lower lobe bronchi were all examined. Purulent secretion was present superior segment of the right lower lobe. Bronchial washing were taken in that area. Right upper lobe bronchial opening was also noted and inspected to be patent. Bronchial washings were taken from that area as well. There were no endobronchial obstructive lesions noted. Small secretions present in the left endobronchial tree as well, which has been cleared out with the help of normal saline wash for this patient as well. All bronchial washings sent for the cultures. Procedure well tolerated by the patient, but except the patient will be requiring general anesthesia for this patient for the procedure and was intubated for the patient for the management of the airway for the patient for the next 24 hours. The findings for the patient were discussed with the patient's family members and the primary care physician, Dr. Radha Landaverde as well. ENT consultation was also requested for patient for assessment of the epistaxis, which was causing pseudohemoptysis. MARIA INES ROGERS MD CM:PROCNOTE:PROCEDURE NOTE [id number] MARIA INES MAYER MD
[~2017-03-16 09:22] MED LIST: AMLODIPINE BESY1 CA6 PO; CIPRO500 MG PO; CYMBALTA60 MG PO; DUONEB 3 MG/3 ML3 M1 NEB; EC NAPROSYN500 MG PO; GABAPENTIN400 MG PO; LOTENSIN20 MG PO; LOTREL 5 MG-201 CA1 PO; METHADONE HCL10 MG PO; OMEPRAZOLE MAGN20 MG PO; OMNICEF300 MG PO; OSCAL/D,OYSTER250 MG PO; PERCOCET 325 MG1 TA5 PO; PRAVASTATIN SOD20 MG PO; PREDNISONE5 MG PO; PREVACID30 M2 PO; PULMICORT RESP0.5 MG NEB; ZANAFLEX4 M1 PO; ZITHROMAX TRI-500 M1 PO
[2017-03-16] MEDS ORDERED: PREVACID30 M2 PO (10:11)
[2017-03-16 10:46] LABS: HEMATOCRIT 32.7 % (37.0-47.0); HEMOGLOBIN 10.2 g/dl (12.0-16.0); MEAN CELL VOLUME 87.9 fl (81.0-99.0); MEAN CORPUSCULAR HGB 27.4 pg (27.0-31.0); MEAN CORPUSCULAR HGB CONC 31.2 g/dl (33.0-37.0); NUCLEATED RED BLOOD CELL 0.2 % (0.0-0.0); PLATELET COUNT AUTOMATED 97 10*3/uL (130-400); RED BLOOD COUNT 3.72 10*6/uL (4.10-5.10); RED CELL DISTRI WIDTH 15.4 % (0-14.5); WHITE BLOOD COUNT 8.8 10*3/uL (4.8-10.8)
[2017-03-16 10:57] LABS: POTASSIUM 4.9 mmol/L (3.5-5.1)
[2017-03-16 11:08] LABS: LYMPHOCYTE # 1.1 10*3/uL (1.3-4.4); METAMYELOCYTES 5 % (0-0); MONOCYTE # 0.6 10*3/uL (0.1-1.0); MYELOCYTES 2 % (0-0); NEUTROPHIL # 6.5 10*3/uL (2.3-7.9); NEUTROPHILS 74 % (47-73); PLATELET SUFFICIENCY LOW (NORMAL); POLYCHROMASIA SLIGHT; TOTAL CELLS COUNTED 100 #CELLS
[2017-03-16 14:24] LABS: ABG BASE EXCESS 0.4 mmol/L (-2.0-2.0); ABG CO2 CONTENT 26.2 mmol/L (23-27); ABG HCO3 24.9 mmol/l (22-26); ABG TEMPERATURE 99.7 F (98.0-99.0); ARTERIAL BLOOD GAS PH 7.38 (7.35-7.45); ARTERIAL BLOOD GAS PO2 69.6 mmHg (80-90)
[2017-03-16 20:33] LABS: BILIRUBIN NEGATIVE (NEGATIVE); BLOOD TRACE-LYSED (NEGATIVE); CLARITY SL CLOUDY (CLEAR); COLOR YELLOW (YELLOW); GLUCOSE NEGATIVE (NEGATIVE); KETONE NEGATIVE (NEGATIVE); LEUKO ESTERASE NEGATIVE (NEGATIVE); NITRITE NEGATIVE (NEGATIVE); PROTEIN NEGATIVE (NEGATIVE); UROBILINOGEN 0.2 E.U./dl (0.2-1.0)
[2017-03-16 20:43] LABS: BACTERIA 1+
[2017-03-16 20:44] LABS: URINE REFLEX COMMENT YES (NO)
[2017-03-17] VITALS (94 sets, daily range): BP systolic 69–134; BP diastolic 38–91
[2017-03-17 04:47] LABS: ABG CO2 CONTENT 29.8 mmol/L (23-27); ABG HCO3 28.1 mmol/l (22-26); ABG TEMPERATURE 98.7 F (98.0-99.0); ARTERIAL BLOOD GAS PH 7.325 (7.35-7.45); ARTERIAL BLOOD GAS PO2 73.9 mmHg (80-90)
[2017-03-17 07:46] LABS: HEMATOCRIT 31.2 % (37.0-47.0); HEMOGLOBIN 9.6 g/dl (12.0-16.0); MEAN CELL VOLUME 88.6 fl (81.0-99.0); MEAN CORPUSCULAR HGB 27.3 pg (27.0-31.0); MEAN CORPUSCULAR HGB CONC 30.8 g/dl (33.0-37.0); MEAN PLATELET VOLUME 10.5 fl (9.6-12.3); PLATELET COUNT AUTOMATED 89 10*3/uL (130-400); RED BLOOD COUNT 3.52 10*6/uL (4.10-5.10); RED CELL DISTRI WIDTH 15.6 % (0-14.5); WHITE BLOOD COUNT 8.9 10*3/uL (4.8-10.8)
[2017-03-17 07:52] LABS: POTASSIUM 4.4 mmol/L (3.5-5.1)
[2017-03-17 08:11] LABS: DOHLE BODIES FEW; LYMPHOCYTE # 1.3 10*3/uL (1.3-4.4); METAMYELOCYTES 3 % (0-0); MONOCYTE # 0.6 10*3/uL (0.1-1.0); NEUTROPHIL # 6.7 10*3/uL (2.3-7.9); NEUTROPHILS 75 % (47-73); PLATELET SUFFICIENCY LOW (NORMAL); POLYCHROMASIA SLIGHT; TOTAL CELLS COUNTED 100 #CELLS
[2017-03-17 15:39] LABS: INTERNATIONAL NORM RATIO 1.1 (2.0-3.5)
[2017-03-17 16:29] LABS: COL/ADP 185 SECONDS (63-105); COL/EPI 150 SECONDS (86-157)
[2017-03-18] VITALS (26 sets, daily range): BP systolic 95–131; BP diastolic 44–79
[2017-03-18 05:33] LABS: CARBON DIOXIDE 31 mmol/L (21-32); CHLORIDE 103 mmol/L (98-107); EST GLOM FILT AFRICAN AMERICAN > 60 ml/min; GLUCOSE 157 mg/dL (65-99); POTASSIUM 5.2 mmol/L (3.5-5.1); SODIUM 138 mmol/L (136-145)
[2017-03-18 05:37] LABS: BUN 22 mg/dl (7-24)
[2017-03-18 06:12] LABS: HEMATOCRIT 30.4 % (37.0-47.0); HEMOGLOBIN 9.1 g/dl (12.0-16.0); MEAN CELL VOLUME 90.7 fl (81.0-99.0); MEAN CORPUSCULAR HGB 27.2 pg (27.0-31.0); MEAN CORPUSCULAR HGB CONC 29.9 g/dl (33.0-37.0); MEAN PLATELET VOLUME 11.7 fl (9.6-12.3); NUCLEATED RED BLOOD CELL 0.3 % (0.0-0.0); PLATELET COUNT AUTOMATED 96 10*3/uL (130-400); RED BLOOD COUNT 3.35 10*6/uL (4.10-5.10); RED CELL DISTRI WIDTH 15.4 % (0-14.5); WHITE BLOOD COUNT 7.6 10*3/uL (4.8-10.8)
[2017-03-18 06:15] LABS: IMMUNOGLOBULIN IgE 002170 31 IU/mL (0-100)
[2017-03-18 06:54] LABS: MONOCYTE # 0.2 10*3/uL (0.1-1.0); NEUTROPHIL # 6.5 10*3/uL (2.3-7.9); NEUTROPHILS 85 % (47-73); PLATELET SUFFICIENCY LOW (NORMAL); TOTAL CELLS COUNTED 100 #CELLS
[2017-03-18 06:55] LABS: POLYCHROMASIA SLIGHT
[2017-03-18 07:08] LABS: RHEUMATOID ARTHRITIS FACTOR 45.5 IU/mL (0.0-13.9)
[2017-03-18 12:39] LABS: ABG BASE EXCESS -1.3 mmol/L (-2.0-2.0); ABG CO2 CONTENT 27.2 mmol/L (23-27); ABG HCO3 25.5 mmol/l (22-26); ARTERIAL BLOOD GAS PH 7.277 (7.35-7.45)
[2017-03-18 15:10] LABS: ANGIOTENSIN-CONVERTING ENZYME 6 U/L (14-82)
[2017-03-18 17:53] LABS: ABG CO2 CONTENT 28.9 mmol/L (23-27); ABG HCO3 27.2 mmol/l (22-26); ABG TEMPERATURE 98.1 F (98.0-99.0); ARTERIAL BLOOD GAS PH 7.317 (7.35-7.45)
[2017-03-19] VITALS (9 sets, daily range): BP systolic 118–138; BP diastolic 58–72
[2017-03-19 01:07] LABS: IGG SUBCLASS 1 784 mg/dL (422-1292); IGG SUBCLASS 2 287 mg/dL (117-747); IGG SUBCLASS 3 76 mg/dL (41-129); IGG SUBCLASS 4 43 mg/dL (1-291)
[2017-03-19 05:44] LABS: ABG BASE EXCESS 0.8 mmol/L (-2.0-2.0); ABG CO2 CONTENT 28.1 mmol/L (23-27); ABG HCO3 26.5 mmol/l (22-26); ABG TEMPERATURE 98.8 F (98.0-99.0); ARTERIAL BLOOD GAS PH 7.34 (7.35-7.45); ARTERIAL BLOOD GAS PO2 97.6 mmHg (80-90)
[2017-03-19 06:14] LABS: BASO % 0.1 % (0.0-1.0); HEMATOCRIT 29.5 % (37.0-47.0); HEMOGLOBIN 8.8 g/dl (12.0-16.0); IG # 0.1 10*3/uL (0.0-0.1); LYMPH # 1.2 10*3/uL (1.3-4.4); LYMPH % 16.3 % (27.0-41.0); MEAN CORPUSCULAR HGB 27.2 pg (27.0-31.0); MEAN CORPUSCULAR HGB CONC 29.8 g/dl (33.0-37.0); MEAN PLATELET VOLUME 10.7 fl (9.6-12.3); MONO # 0.5 10*3/uL (0.1-1.0); MONO % 6.1 % (3.0-9.0); NEUT # 5.7 10*3/uL (2.3-7.9); NEUT % 76.7 % (47.0-73.0); NUCLEATED RED BLOOD CELL 0.3 % (0.0-0.0); PLATELET COUNT AUTOMATED 122 10*3/uL (130-400); RED BLOOD COUNT 3.24 10*6/uL (4.10-5.10); RED CELL DISTRI WIDTH 15.7 % (0-14.5); WHITE BLOOD COUNT 7.4 10*3/uL (4.8-10.8)
[2017-03-19 06:48] LABS: ALBUMIN 2.5 gm/dl (3.1-4.5); ALKALINE PHOSPHATASE 45 U/L (45-117); BILIRUBIN, TOTAL 0.4 mg/dl (0.2-1.0); BUN 29 mg/dl (7-24); CARBON DIOXIDE 29 mmol/L (21-32); CHLORIDE 103 mmol/L (98-107); EST GLOM FILT AFRICAN AMERICAN > 60 ml/min; GLUCOSE 140 mg/dL (65-99); POTASSIUM 4.7 mmol/L (3.5-5.1); SGOT/AST 16 IU/L (3-35); SGPT/ALT 30 U/L (12-78); SODIUM 139 mmol/L (136-145); TOTAL PROTEIN 6.5 gm/dL (6.4-8.2)
[2017-03-19 12:15] LABS: ABG BASE EXCESS 0.4 mmol/L (-2.0-2.0); ABG CO2 CONTENT 27.8 mmol/L (23-27); ABG HCO3 26.2 mmol/l (22-26); ARTERIAL BLOOD GAS PH 7.331 (7.35-7.45); ARTERIAL BLOOD GAS PO2 83.8 mmHg (80-90)
[2017-03-19 15:06] LABS: ACID FAST SPEC PROCESSING Concentration (.)
[2017-03-20] VITALS: BP 118/60
[2017-03-20 04:00] VITALS: BP 119/62
[2017-03-20 06:03] LABS: ALBUMIN 2.7 gm/dl (3.1-4.5); ALKALINE PHOSPHATASE 42 U/L (45-117); BILIRUBIN, TOTAL 0.3 mg/dl (0.2-1.0); BUN 25 mg/dl (7-24); CARBON DIOXIDE 31 mmol/L (21-32); CHLORIDE 103 mmol/L (98-107); EST GLOM FILT AFRICAN AMERICAN > 60 ml/min; GLUCOSE 138 mg/dL (65-99); POTASSIUM 4.3 mmol/L (3.5-5.1); SGOT/AST 28 IU/L (3-35); SGPT/ALT 27 U/L (12-78); SODIUM 142 mmol/L (136-145); TOTAL PROTEIN 6.5 gm/dL (6.4-8.2)
[2017-03-20 06:08] LABS: BASO % 0.2 % (0.0-1.0); HEMATOCRIT 26.7 % (37.0-47.0); HEMOGLOBIN 8.1 g/dl (12.0-16.0); IG # 0.1 10*3/uL (0.0-0.1); LYMPH # 1.1 10*3/uL (1.3-4.4); LYMPH % 21.4 % (27.0-41.0); MEAN CELL VOLUME 89.9 fl (81.0-99.0); MEAN CORPUSCULAR HGB 27.3 pg (27.0-31.0); MEAN CORPUSCULAR HGB CONC 30.3 g/dl (33.0-37.0); MEAN PLATELET VOLUME 10.8 fl (9.6-12.3); MONO # 0.5 10*3/uL (0.1-1.0); MONO % 10.2 % (3.0-9.0); NEUT # 3.2 10*3/uL (2.3-7.9); PLATELET COUNT AUTOMATED 111 10*3/uL (130-400); RED BLOOD COUNT 2.97 10*6/uL (4.10-5.10); RED CELL DISTRI WIDTH 15.6 % (0-14.5); WHITE BLOOD COUNT 4.9 10*3/uL (4.8-10.8)
[2017-03-20 08:00] VITALS: BP 125/71
[2017-03-20 12:00] VITALS: BP 136/73
[2017-03-20 16:00] VITALS: BP 141/66
[2017-03-20 20:00] VITALS: BP 144/73
[2017-03-21] VITALS: BP 126/61
[2017-03-21 05:15] VITALS: BP 146/90
[2017-03-21 06:33] LABS: HEMATOCRIT 27.7 % (37.0-47.0); HEMOGLOBIN 8.5 g/dl (12.0-16.0); MEAN CELL VOLUME 89.1 fl (81.0-99.0); MEAN CORPUSCULAR HGB 27.3 pg (27.0-31.0); MEAN CORPUSCULAR HGB CONC 30.7 g/dl (33.0-37.0); MEAN PLATELET VOLUME 10.2 fl (9.6-12.3); NUCLEATED RED BLOOD CELL 0.5 % (0.0-0.0); PLATELET COUNT AUTOMATED 120 10*3/uL (130-400); RED BLOOD COUNT 3.11 10*6/uL (4.10-5.10); WHITE BLOOD COUNT 3.7 10*3/uL (4.8-10.8)
[2017-03-21 06:54] LABS: ALBUMIN 2.8 gm/dl (3.1-4.5); ALKALINE PHOSPHATASE 43 U/L (45-117); BILIRUBIN, TOTAL 0.4 mg/dl (0.2-1.0); BUN 19 mg/dl (7-24); CARBON DIOXIDE 35 mmol/L (21-32); CHLORIDE 99 mmol/L (98-107); EST GLOM FILT AFRICAN AMERICAN > 60 ml/min; GLUCOSE 149 mg/dL (65-99); POTASSIUM 4.6 mmol/L (3.5-5.1); SGOT/AST 26 IU/L (3-35); SGPT/ALT 35 U/L (12-78); SODIUM 140 mmol/L (136-145); TOTAL PROTEIN 6.7 gm/dL (6.4-8.2)
[2017-03-21 07:22] LABS: HYPOCHROMIA SLIGHT; LYMPHOCYTE # 0.4 10*3/uL (1.3-4.4); METAMYELOCYTES 2 % (0-0); MONOCYTE # 0.3 10*3/uL (0.1-1.0); MYELOCYTES 3 % (0-0); NEUTROPHIL # 2.8 10*3/uL (2.3-7.9); NEUTROPHILS 76 % (47-73); PLATELET SUFFICIENCY LOW (NORMAL); POLYCHROMASIA SLIGHT; TOTAL CELLS COUNTED 100 #CELLS
[2017-03-21 08:00] VITALS: BP 125/77
[2017-03-21] MEDS ORDERED: OYSTER SHELL CA1 T20 PO (08:14)
[2017-03-21 12:00] VITALS: BP 119/65
[2017-03-21 16:00] VITALS: BP 154/75
[2017-03-21 20:00] VITALS: BP 148/87
[2017-03-22] VITALS (9 sets, daily range): BP systolic 120–180; BP diastolic 69–92
[2017-03-22 00:15] LABS: BUN 19 mg/dl (7-24); CARBON DIOXIDE 32 mmol/L (21-32); CHLORIDE 99 mmol/L (98-107); EST GLOM FILT AFRICAN AMERICAN > 60 ml/min; GLUCOSE 123 mg/dL (65-99); MAGNESIUM 1.9 mg/dL (1.5-2.1); SODIUM 140 mmol/L (136-145)
[2017-03-22 05:34] LABS: BUN 18 mg/dl (7-24); CARBON DIOXIDE 35 mmol/L (21-32); CHLORIDE 101 mmol/L (98-107); EST GLOM FILT AFRICAN AMERICAN > 60 ml/min; GLUCOSE 90 mg/dL (65-99); POTASSIUM 3.5 mmol/L (3.5-5.1); SODIUM 139 mmol/L (136-145)
[2017-03-22 05:52] LABS: HEMATOCRIT 28.4 % (37.0-47.0); HEMOGLOBIN 8.7 g/dl (12.0-16.0); MEAN CELL VOLUME 88.8 fl (81.0-99.0); MEAN CORPUSCULAR HGB 27.2 pg (27.0-31.0); MEAN CORPUSCULAR HGB CONC 30.6 g/dl (33.0-37.0); MEAN PLATELET VOLUME 10.8 fl (9.6-12.3); NUCLEATED RED BLOOD CELL 0.1 10*3/uL (0.0-0.0); NUCLEATED RED BLOOD CELL 1.4 % (0.0-0.0); PLATELET COUNT AUTOMATED 147 10*3/uL (130-400); RED CELL DISTRI WIDTH 14.7 % (0-14.5); WHITE BLOOD COUNT 4.2 10*3/uL (4.8-10.8)
[2017-03-22 06:55] LABS: EOSINOPHILS 1 % (1-4); HYPOCHROMIA SLIGHT; LYMPHOCYTE # 0.8 10*3/uL (1.3-4.4); METAMYELOCYTES 1 % (0-0); MONOCYTE # 0.3 10*3/uL (0.1-1.0); NEUTROPHILS 72 % (47-73); PLASMA CELL 1 % (0-0); PLATELET SUFFICIENCY NORMAL (NORMAL); POLYCHROMASIA SLIGHT; TOTAL CELLS COUNTED 100 #CELLS
[2017-03-23] VITALS: BP 148/73
[2017-03-23 07:39] LABS: IRON 42 ug/dL (50-170); IRON SATURATION 13 %; UIBC 271 ug/dL (110-365)
[2017-03-23 08:00] VITALS: BP 148/91
[2017-03-23 12:00] VITALS: BP 154/87
[2017-03-23 16:00] VITALS: BP 156/77
[2017-03-23 20:00] VITALS: BP 130/66
[2017-03-24 00:43] VITALS: BP 130/68
[2017-03-24 06:44] LABS: EOS # 0.1 10*3/uL (0.0-0.4); EOS % 0.8 % (1.0-4.0); HEMATOCRIT 28.9 % (37.0-47.0); HEMOGLOBIN 8.9 g/dl (12.0-16.0); IG # 0.1 10*3/uL (0.0-0.1); LYMPH # 1.9 10*3/uL (1.3-4.4); LYMPH % 31.1 % (27.0-41.0); MEAN CORPUSCULAR HGB 27.7 pg (27.0-31.0); MEAN CORPUSCULAR HGB CONC 30.8 g/dl (33.0-37.0); MEAN PLATELET VOLUME 10.5 fl (9.6-12.3); MONO # 0.5 10*3/uL (0.1-1.0); MONO % 7.8 % (3.0-9.0); NEUT # 3.6 10*3/uL (2.3-7.9); NEUT % 58.4 % (47.0-73.0); PLATELET COUNT AUTOMATED 181 10*3/uL (130-400); RED BLOOD COUNT 3.21 10*6/uL (4.10-5.10); RED CELL DISTRI WIDTH 14.9 % (0-14.5); WHITE BLOOD COUNT 6.2 10*3/uL (4.8-10.8)
[2017-03-24] MEDS ORDERED: DUONEB 3 MG/3 ML3 M1 NEB (07:06)
[2017-03-24 08:17] VITALS: BP 140/83
[2017-03-25 20:14] LABS: MITOGEN VALUE 0.23 IU/mL (.); NIL VALUE 0.21 IU/mL (.); TB Ag MINUS NIL VALUE <0.00 IU/mL (.); TB Ag VALUE 0.18 IU/mL (.); TB GOLD Indeterminate (Negative)
== END 2017-03-24 13:30 | disposition other institution (70) | DRG 871 ==
LOC: 5E 09:22 → ICCU 09:22 → 5E 03-22 14:11
PROVIDERS: Internal Medicine; Internal Medicine Critical Care Medicine; Internal Medicine Hematology & Oncology
PROC: 0BC78ZZ Extirpation of Matter from Left Main Bronchus, Via Natural or Artificial Opening Endoscopic (ICD-10-PCS; principal; 2017-03-18)
PROC: 0BC68ZZ Extirpation of Matter from Right Lower Lobe Bronchus, Via Natural or Artificial Opening Endoscopic (ICD-10-PCS; principal; 2017-03-18)
PROC: 0BC18ZZ Extirpation of Matter from Trachea, Via Natural or Artificial Opening Endoscopic (ICD-10-PCS; principal; 2017-03-18)
PROC: 0BC58ZZ Extirpation of Matter from Right Middle Lobe Bronchus, Via Natural or Artificial Opening Endoscopic (ICD-10-PCS; principal; 2017-03-18)
PROC: 0BC38ZZ Extirpation of Matter from Right Main Bronchus, Via Natural or Artificial Opening Endoscopic (ICD-10-PCS; principal; 2017-03-18)
PROC: 0BC98ZZ Extirpation of Matter from Lingula Bronchus, Via Natural or Artificial Opening Endoscopic (ICD-10-PCS; principal; 2017-03-18)
PROC: 0BC48ZZ Extirpation of Matter from Right Upper Lobe Bronchus, Via Natural or Artificial Opening Endoscopic (ICD-10-PCS; principal; 2017-03-18)
PROC: 0BH17EZ Insertion of Endotracheal Airway into Trachea, Via Natural or Artificial Opening (ICD-10-PCS; principal; 2017-03-18)
PROC: 0BC88ZZ Extirpation of Matter from Left Upper Lobe Bronchus, Via Natural or Artificial Opening Endoscopic (ICD-10-PCS; principal; 2017-03-18)
PROC: 02H633Z Insertion of Infusion Device into Right Atrium, Percutaneous Approach (ICD-10-PCS; 2017-03-18)
PROC: 5A1945Z Respiratory Ventilation, 24-96 Consecutive Hours (ICD-10-PCS; 2017-03-18)
PROC: 0BCB8ZZ Extirpation of Matter from Left Lower Lobe Bronchus, Via Natural or Artificial Opening Endoscopic (ICD-10-PCS; 2017-03-18)
PROC: 0CB7XZX Excision of Tongue, External Approach, Diagnostic (ICD-10-PCS; 2017-03-22)
PROC: 02HV33Z Insertion of Infusion Device into Superior Vena Cava, Percutaneous Approach (ICD-10-PCS; 2017-03-22)
DX: A41.9 Sepsis, unspecified organism (principal); J18.9 Pneumonia, unspecified organism; J96.21 Acute and chronic respiratory failure with hypoxia; I47.2 Ventricular tachycardia; N17.9 Acute kidney failure, unspecified; T17.590A Other foreign object in bronchus causing asphyxiation, initial encounter; J44.0 Chronic obstructive pulmonary disease with (acute) lower respiratory infection; J44.1 Chronic obstructive pulmonary disease with (acute) exacerbation; F33.9 Major depressive disorder, recurrent, unspecified; Z68.42 Body mass index [BMI] 45.0-49.9, adult; R65.20 Severe sepsis without septic shock; I10 Essential (primary) hypertension; M54.9 Dorsalgia, unspecified; G89.4 Chronic pain syndrome; K14.0 Glossitis; D50.9 Iron deficiency anemia, unspecified; R19.7 Diarrhea, unspecified; E66.01 Morbid (severe) obesity due to excess calories; E87.5 Hyperkalemia; R62.7 Adult failure to thrive; D63.0 Anemia in neoplastic disease; Z88.1 Allergy status to other antibiotic agents; Z87.891 Personal history of nicotine dependence; Z85.72 Personal history of non-Hodgkin lymphomas; Z88.8 Allergy status to other drugs, medicaments and biological substances

== ENCOUNTER 2017-03-30 14:46 | Inpatient (IN) | payer OTHER ==
[~2017-03-30] VITALS: Ht 167.6 cm; Wt 130.7 kg
--- NOTE | ~2017-03-30 | WRIGHTHP ---
[place], [place] PATIENT HISTORY AND PHYSICAL EXAM NAME: JEROME WIGGINS [facility] #: [id number] UNIT #: [id number] ROOM: 424 DOCTOR: MANNY JANE MD BIRTHDATE: [birth year] DOS: 03/30/2017 HISTORY OF PRESENT ILLNESS: The patient is a 52-year-old female with a past medical history of: 1. Advanced chronic obstructive pulmonary disease with chronic respiratory failure. 2. Benign essential hypertension. 3. Chronic lower back pains. 4. History of large cell lymphoma. 5. History of major depression, recurrent, moderate. 6. Obesity. The patient [facility] with complaints of right lower chest pains and the back, which were sharp and stabbing and off and on for about last 5 days. The patient was brought to the Emergency Department and CT angiogram of the chest showed loculated fluid in the right lung, which was evaluated by the stationary engineer apprentice, Dr. Hayward. Dr. Hayward thinks that the patient has multiple fluid loculations in the right chest, apparently also related to the pain she is complaining. Dr. Hayward has recommended the patient should be transferred to [facility] and a thoracic surgeon over there to drain this loculated fluid and possibly perform pleurodesis. The patient is agreeable. No other chest pains. Chronic shortness of breath. No other GI or urinary symptoms. REVIEW OF SYSTEMS: LUNGS: Chronic shortness of breath. CARDIOVASCULAR: No chest pains or palpitations. SOCIAL HISTORY: Denies smoking cigarettes, alcohol and drug abuse. FAMILY HISTORY: Noncontributory. MEDICATIONS: Gabapentin, Cymbalta, cholestyramine, amlodipine, Protonix, simvastatin, tizanidine, DuoNebs, methadone, Vicodin. ALLERGIES: KNOWN ALLERGIES TO HYDROCODONE AND TYLENOL. PHYSICAL EXAMINATION: GENERAL: Alert and oriented x 3, moderately obese, decreased breath sounds. Generalized weakness. VITAL SIGNS: Blood pressure 128/88, afebrile, heart rate of 99 beats per minute. HEENT AND NECK: Extraocular movements are intact. Sclerae are anicteric. Oral mucosa is moist and clean. No obvious facial weakness. Neck is supple without any lymphadenopathy. No thyromegaly. No JVD. No carotid arterial bruits. LUNGS: Clear to auscultation. No wheezing. No rhonchi. CARDIOVASCULAR SYSTEM: Heart rate is regular in rate and rhythm. S1 and S2 normally audible. No significant murmur or any other abnormal cardiac sounds. [place], [place] PATIENT HISTORY AND PHYSICAL EXAM [id number] UN[facility] #: [id number] ROOM: [facility] DOCTOR: MANNY JANE MD BIRTHDATE: [birth year] ABDOMEN: Soft, nontender. No obvious organomegaly. Bowel sounds are present. No obvious herniation. EXTREMITIES: Without significant cyanosis or edema. Warm to touch. CENTRAL NERVOUS SYSTEM: Alert and oriented x 3. Cranial nerves II-XII are intact. Speech is normal. The patient is able to move all extremities. Normal muscle strength. Deep tendon reflexes are equal on both sides. Plantars were downgoing. LABORATORY DATA: CT scan of the chest results as mentioned above. Cardiac enzymes were negative x 3. IMPRESSION: 1. The patient with fluid loculation in the right lung with significant right-sided chest pains, negative for acute myocardial infarction with negative cardiac enzymes. The patient is being treated with nebulizer treatments, antibiotics, corticosteroids. Dr. Hayward on consult. 2. Resolving right lung pneumonia. 3. Benign essential hypertension with controlled blood pressures with treatment. 4. Chronic lower back pain. The patient on methadone, was continued. The patient also takes oxycodone on an as needed basis. 5. Mixed hyperlipidemia, treated with simvastatin. 6. Case discussed with Dr. Hayward and Dr. Ayo Roe at [facility] and the patient being transferred under his care for thoracic surgery to be consulted and Dr. Hayward to be consulted over there to follow. MANNY JANE MD CM:HISPHYS:PATIENT HISTORY AND PHYSICAL EXAMINATION 1719 1849 MANNY JANE MD 04/01/17 0048 interface
--- NOTE | ~2017-03-30 | CON ---
[place], [place] REPORT OF CONSULTATION NAME: JEROME WIGGINS [facility] #: [id number] UNIT #: [id number] ROOM: 424 DOCTOR: KEN MAYER MDMARIA INES BIRTHDATE: [birth year] DOS: 03/31/2017 PULMONARY CONSULTATION EVALUATION AND MANAGEMENT CONSULTATION REQUESTED BY: Dr. Sarmiento for assessment of the current chest pain of the patient abnormal findings on the CT scan of the chest. HISTORY OF PRESENT ILLNESS: A 52 years old white female who has been known to me previously. The patient has been admitted to the hospital recently on 03/16/2017. The patient has been treated in this hospital and discharged to the nursing facility, 03/24/2017. The patient was treated for large abnormal appearing, the patient mass-like consolidation in the right upper lung. The patient has been treated with intravenous antibiotics and noted with progressive resolution and improvement in the acute pneumonia. The patient was discharged to half-way facility for further medical management. She also developed acute hypercapnic and hypoxic respiratory failure, management with the mechanical ventilation as well. The patient has a biopsy of the tongue for this patient was done, which was currently noted to be nonmalignant. She developed symptoms of acute severe pain, which were described in the right lower chest wall. The pain was worsened with deep inspiratory effort. She does have symptoms of some cough, but there was no sputum expectoration. Denies any symptoms of wheezing. The patient during the last hospitalization for the patient, she has been noted with hemoptysis on admission, which was resolved. There were no endobronchial obstructive lesions noted with the bronchoscopy. REVIEW OF SYSTEMS: CONSTITUTIONAL SYMPTOMS: Fatigue and tiredness noted without symptoms of fever or chills. EYES: Denies any burning, redness, or tenderness. EARS, NOSE, THROAT SYMPTOMS: No sore throat, hoarseness, otalgia, postnasal drainage. CARDIOVASCULAR SYSTEM: Denies anginal pain, edema or pain of the lower extremities. GASTROINTESTINAL SYMPTOMS: Denies dysphagia, nausea, vomiting, diarrhea, abdominal pain, hematemesis, melena, or hematochezia. SKIN: No lesions or rashes. MUSCULOSKELETAL SYMPTOMS: Denies acute joint pain or deformities. CENTRAL NERVOUS SYSTEM: No dizziness, headache, diplopia, syncopal episodes. PAST MEDICAL HISTORY: 1. Noted with history of B-cell lymphoma for this patient in the abdomen for this patient with possible metastasis to the spine, treated with chemotherapy in 2013 for this patient with complete resolution and remission since then. The diagnosis was done for biopsy with the EGD of the stomach. 2. History of acute pneumonia for this patient mass-like lesion in the right upper lung treated for this patient with gram-positive infection for the patient and hemoptysis. Complete resolution occurred in February 2017. 3. History of chronic lower back pain. [place], [place] REPORT OF CONSULTATION NAME: JEROME WIGGINS UNIT #: [id number] ROOM: [facility] DOCTOR: KEN MAYER MD,[facility] BIRTHDATE: [birth year] 4. Essential hypertension. 5. History of depression. 6. Severe obesity. 7. Benign ulcer for this patient on the lateral portion of the left side of the tongue for this patient noted to be nonmalignant. PAST SURGICAL HISTORY: 1. EGD for the patient with biopsy of the stomach for the patient, October 2013. 2. Mediport insertion. 3. Cardiac catheterization. 4. Attempted biopsy at this point, nonsuccess for the patient in 2013. 5. Complete hysterectomy. 6. MediPort insertion and MediPort removal. 7. Direct laryngoscopy of the patient biopsy of the tongue for the patient February 2017. 8. Fiberoptic bronchoscopy of the patient in February 2017. 9. Past EGD and colonoscopy repeated. SOCIAL HISTORY: The patient lives at home. Denies any history of alcohol use, any illicit drug use. She has been known with history of tobacco use the patient younger age, 2 pack of cigarettes per day in the past. FAMILY HISTORY: The patient was not known. MEDICATIONS: Current administered medications noted use of gabapentin, Cymbalta, cholestyramine, amlodipine, Protonix, IV Solu-Medrol, simvastatin, tizanidine, IV Rocephin, methadone, DuoNeb and other p.r.n. medications. ALLERGIES: THE DRUG ALLERGY HISTORY OF THE PATIENT WAS NOTED ALLERGY, 1. VICODIN. 2. EMEND. 3. VECURONIUM. 4. PAST QUESTIONABLE ALLERGY TO THE VERSED. PHYSICAL EXAMINATION: GENERAL: This is a 52 years old female who has been currently sitting on the side of the bed without any distress at the time of the assessment. Height was noted as 5 feet 5 inches, weight of 288 pounds, BMI 46.5. VITAL SIGNS: The patient showed the temperature noted 99.5 degrees Fahrenheit to normal temperature since admission, respiratory rate 19-20, 93-94, blood pressure 120/70 of the patient 136/78. Pulse oxygen saturation of the patient recorded on 2 liters nasal cannula 95% saturation. HEENT: Examination shows head was atraumatic, severe chronic obesity. NECK: Supple. Decreased posterior pharyngeal space. Neck was supple, short and obese. CARDIOVASCULAR SYSTEM: S1, S2 audible. LUNGS: The patient was noted with moderate general reduction of the breath sounds noted in the lungs bilaterally, more on the right than the left side. There was no wheezing or crackles. [place], [place] REPORT OF CONSULTATION NAME: JEROME WIGGINS UNIT #: [id number] ROOM: [facility] DOCTOR: KEN MAYER MD,[facility] BIRTHDATE: [birth year] ABDOMEN: Soft, obese, nontender. EXTREMITIES: Shows chronic obesity. SKIN: Showed no lesions or rashes. MUSCULOSKELETAL SYMPTOMS: No deformities. CENTRAL NERVOUS SYSTEM: Cranial nerves 2-12 intact. No focal deficits. LABORATORY DATA: CBC, 03/30/2017 on admission, WBC count was normal at 7.3, hemoglobin 9.8, hematocrit 31.7, platelet count normal at 167,000. CMP of the patient on 03/30/2017 for this patient noted essentially normal except glucose mildly elevated at 132. PT/PTT of the patient that was done yesterday were noted as normal. The CK-MB, troponin of patient yesterday and this morning were all noted normal. Three sets were taken. Tongue biopsy of the patient that was done for the patient on 03/23/2017 was noted no malignant finding. Chest x-ray of patient, one view of the patient 03/30/2017 for this patient was noted without any acute major abnormality except small minor fissure density noted. CTA of the chest for the patient does not show evidence of pulmonary embolism for the patient, which was noted on 03/30/2017 Loculated pleural fluid noted in the right upper, right mid lung as well as in the right lower lobe for this patient most medially. The pleural peel for this patient appeared to be thickened present in the right lower lobe. Marked improvement and resolution of the mass-like lesion of the patient noted in the right upper lobe. Fatty infiltration of the liver for the patient was also noted with subtle nodularity with possibility of underlying cirrhosis of the liver would be considered. Spleen was enlarged and noted at 12 cm in size. A 2.4 cm nodule was noted in the thyroid isthmus as well. IMPRESSION: 1. The patient who had been currently admitted to the hospital with the recurrent severe pain for this patient was described in the right lower chest for this patient worsened with inspiratory effort. The patient with loculated pleural with the possibility of a localized infection, empyema to be excluded with the current appearance from CT scan of the chest as a new finding. 2. Past treated acute pneumonia as well. 3. The patient with a history of acute hypercapnic and hypoxic respiratory failure, which has been resolving. 4. Severe morbid obesity. 5. Body habitus currently suggestive strongly for obstructive sleep apnea disorder. 6. Past history of lymphoma, which was noted non-Hodgkin originating in the stomach for this patient possible metastasis to the spine, which remains questionable for the patient, treated with chemotherapy with complete resolution for this patient as well as radiation to the spine area for this patient in 2013. There was no further evidence of recurrence known. 7. Questionable cirrhosis for this patient finding was also described on the liver as well with the splenomegaly. 8. Morbid obesity. PLAN OF TREATMENT: The patient has been currently getting antibiotic the patient Rocephin that will be continued for current suspected infection and should suffice. The patient needs to be transferred from this hospital the [place], [place] REPORT OF CONSULTATION NAME: JEROME WIGGINS UNIT #: [id number] ROOM: 424 DOCTOR: MARIA INES STERN MD BIRTHDATE: [birth year] patient to another facility for the patient for the VATS procedure. She was agreeable for transfer to [facility] for further assessment and management of the current loculated pleural fluid and to rule out empyema in the right chest. Bronchodilators will continue as necessary. Continue oxygen supplementation as needed to maintain saturation 90% greater. Observe the respiratory status closely. The transfer for this patient and assessment has been discussed with primary care physician, Dr. Sarmiento on the phone. The case was also discussed by the surgery staff and Dr. Watson on the phone for the patient for surgical intervention and he agreed with that. The patient will be transferred to the physician in [facility] and further care for this patient to be continued and changed for this patient based assessment and management in the other facility. Pain medication to be continued previously needed. Usual care. Thanks for allowing me to participate in the care of this patient. MARIA INES ROGERS MD CM:CONSTR:REPORT OF CONSULTATION 1201 04/01/17 0159 interface
[2017-03-30 14:46] VITALS: BP 121/81
[~2017-03-30 14:46] MED LIST changes: +CEFTRIAXON1 GM/50 ML IV; +OYSTER SHELL CA1 T20 PO
[2017-03-30 15:21] LABS: BASO % 0.3 % (0.0-1.0); EOS % 0.4 % (1.0-4.0); HEMATOCRIT 31.7 % (37.0-47.0); HEMOGLOBIN 9.8 g/dl (12.0-16.0); LYMPH # 0.8 10*3/uL (1.3-4.4); LYMPH % 11.1 % (27.0-41.0); MEAN CELL VOLUME 89.5 fl (81.0-99.0); MEAN CORPUSCULAR HGB 27.7 pg (27.0-31.0); MEAN CORPUSCULAR HGB CONC 30.9 g/dl (33.0-37.0); MEAN PLATELET VOLUME 10.6 fl (9.6-12.3); MONO # 0.6 10*3/uL (0.1-1.0); MONO % 7.6 % (3.0-9.0); NEUT # 5.8 10*3/uL (2.3-7.9); NEUT % 80.2 % (47.0-73.0); PLATELET COUNT AUTOMATED 167 10*3/uL (130-400); RED BLOOD COUNT 3.54 10*6/uL (4.10-5.10); RED CELL DISTRI WIDTH 16.3 % (0-14.5); WHITE BLOOD COUNT 7.3 10*3/uL (4.8-10.8)
[2017-03-30 15:42] LABS: ALBUMIN 3.1 gm/dl (3.1-4.5); ALKALINE PHOSPHATASE 54 U/L (45-117); BILIRUBIN, TOTAL 0.4 mg/dl (0.2-1.0); BUN 9 mg/dl (7-24); CARBON DIOXIDE 27 mmol/L (21-32); CHLORIDE 101 mmol/L (98-107); EST GLOM FILT AFRICAN AMERICAN > 60 ml/min; GLUCOSE 132 mg/dL (65-99); MAGNESIUM 2.3 mg/dL (1.5-2.1); POTASSIUM 4.4 mmol/L (3.5-5.1); SGOT/AST 29 IU/L (3-35); SGPT/ALT 42 U/L (12-78); SODIUM 138 mmol/L (136-145); TOTAL PROTEIN 7.8 gm/dL (6.4-8.2)
[2017-03-30 15:46] LABS: TROPONIN I < 0.015 ng/ml (<0.045)
[2017-03-30 17:51] VITALS: BP 136/88
[2017-03-30] MEDS ORDERED: QUESTRAN LIGHT4 GM PO (17:54)
[2017-03-30] MEDS ORDERED: PREDNISONE10 MG PO (17:59)
[2017-03-30] MEDS ORDERED: ACIDOPHILUS LA1 EACH PO (18:02)
[2017-03-30] MEDS ORDERED: PERCOCET 325 MG1 TA3 PO (18:07)
[2017-03-30] MEDS ORDERED: MOM30 M1 PO (18:08)
[2017-03-30] MEDS ORDERED: DULCOLAX10 M1 RC (18:09)
[2017-03-30] MEDS ORDERED: FLEET MINERAL133 ML PO (18:10)
[2017-03-30 18:55] VITALS: BP 128/78
[2017-03-30 20:00] VITALS: BP 142/85
[2017-03-30] MEDS ORDERED: CEFTRIAXONE1 GM IJ (21:08)
[2017-03-31] VITALS: BP 141/81
[2017-03-31 06:30] VITALS: BP 132/63
[2017-03-31 08:00] VITALS: BP 136/78
[2017-03-31 12:00] VITALS: BP 122/62
[2017-03-31 16:00] VITALS: BP 128/88
== END 2017-03-31 19:45 | disposition short-term general hospital (02) | DRG 313 ==
LOC: ED 14:46 → EDHOLD 18:31 → 4E 19:10
PROVIDERS: Emergency Medicine
DX: R07.9 Chest pain, unspecified (principal); J96.10 Chronic respiratory failure, unspecified whether with hypoxia or hypercapnia; Z68.42 Body mass index [BMI] 45.0-49.9, adult; I10 Essential (primary) hypertension; F32.9 Major depressive disorder, single episode, unspecified; E78.2 Mixed hyperlipidemia; G89.29 Other chronic pain; F17.210 Nicotine dependence, cigarettes, uncomplicated; M54.5 Low back pain; J44.9 Chronic obstructive pulmonary disease, unspecified; E66.01 Morbid (severe) obesity due to excess calories; Z85.72 Personal history of non-Hodgkin lymphomas; Z79.899 Other long term (current) drug therapy; Z88.8 Allergy status to other drugs, medicaments and biological substances; Z90.710 Acquired absence of both cervix and uterus; Z92.21 Personal history of antineoplastic chemotherapy; Z92.3 Personal history of irradiation

== ENCOUNTER → 2017-04-13 | Outpatient (CLI) | payer OTHER ==
[~2017-04-13] MED LIST changes: +ACIDOPHILUS LA1 EACH PO; +CEFTRIAXONE1 GM IJ; +DULCOLAX10 M1 RC; +FLEET MINERAL133 ML PO; +MOM30 M1 PO; +PERCOCET 325 MG1 TA3 PO; +PREDNISONE10 MG PO; +QUESTRAN LIGHT4 GM PO
== END | disposition home or self-care (01) ==
LOC: RAD 11:12
DX: M54.6 Pain in thoracic spine (principal); Z78.0 Asymptomatic menopausal state; Z85.028 Personal history of other malignant neoplasm of stomach; Z85.830 Personal history of malignant neoplasm of bone

== ENCOUNTER → 2017-04-18 | Outpatient (CLI) | payer OTHER | END | disposition home or self-care (01) | LOC: RAD 03:33 | DX: Z78.0 Asymptomatic menopausal state (principal); Z85.71 Personal history of Hodgkin lymphoma; Z85.028 Personal history of other malignant neoplasm of stomach ==

== ENCOUNTER → 2017-07-01 | Outpatient (CLI) | payer OTHER ==
--- NOTE | ~2017-07-01 | EKG ---
[place], [place] ELECTROCARDIOGRAM REPORT NAME: JEROME WIGGINS UNIT #: [id number] ROOM: DOCTOR: GORDON PERSAUD MD BIRTHDATE: [birth year] DOS: 07/01/2017 TIME: 0554 hours. Normal sinus rhythm at 85 beats per minute. The tracing is normal. No previous tracing is available for comparison. GORDON PERSAUD MD CM:EKGRPT:ELECTROCARDIOGRAM REPORT 1729 07 GORDON PERSAUD MD
== END | disposition home or self-care (01) ==
LOC: CARD 07:45
DX: I10 Essential (primary) hypertension (principal)

== ENCOUNTER → 2018-02-16 | Outpatient (CLI) | payer OTHER | END | disposition home or self-care (01) | LOC: MRI 10:53 | DX: M48.54XD Collapsed vertebra, not elsewhere classified, thoracic region, subsequent encounter for fracture with routine healing (principal) ==

== ENCOUNTER → 2018-04-22 | Outpatient (CLI) | payer OTHER ==
[2018-04-22 10:22] LABS: BASO % 0.7 % (0.0-1.0); EOS # 0.3 10*3/uL (0.0-0.4); EOS % 4.8 % (1.0-4.0); HEMATOCRIT 37.2 % (37.0-47.0); HEMOGLOBIN 11.7 g/dl (12.0-16.0); LYMPH # 1.9 10*3/uL (1.3-4.4); LYMPH % 33.3 % (27.0-41.0); MEAN CELL VOLUME 85.7 fl (81.0-99.0); MEAN CORPUSCULAR HGB CONC 31.5 g/dl (33.0-37.0); MEAN PLATELET VOLUME 10.6 fl (9.6-12.3); MONO # 0.5 10*3/uL (0.1-1.0); MONO % 8.3 % (3.0-9.0); NEUT % 52.7 % (47.0-73.0); PLATELET COUNT AUTOMATED 211 10*3/uL (130-400); RED BLOOD COUNT 4.34 10*6/uL (4.10-5.10); RED CELL DISTRI WIDTH 13.8 % (0-14.5); WHITE BLOOD COUNT 5.7 10*3/uL (4.8-10.8)
[2018-04-22 10:51] LABS: ALBUMIN 3.7 gm/dl (3.1-4.5); ALKALINE PHOSPHATASE 84 U/L (45-117); BUN 8 mg/dl (7-24); CHLORIDE 104 mmol/L (98-107); CHOLESTEROL 171 mg/dL (<200); CREATININE 0.85 mg/dL (0.55-1.02); HDL CHOLESTEROL 41 mg/dl (40-60); LDL CHOLESTEROL 106 mg/dL (9-159); SGOT/AST 25 IU/L (3-35); SGPT/ALT 33 U/L (12-78); SODIUM 141 mmol/L (136-145); TOTAL PROTEIN 8.2 gm/dL (6.4-8.2); TRIGLYCERIDES 118 mg/dl (<150); VLDL CHOLESTEROL 24 mg/dL (6-40)
[2018-04-22 10:58] LABS: THYROID STIM HORMONE (HS) 0.175 uIU/ml (0.358-4.75)
== END | disposition home or self-care (01) ==
LOC: LAB 09:02
PROVIDERS: Physician Assistant Medical
DX: I10 Essential (primary) hypertension (principal); R05 Cough

== ENCOUNTER 2018-06-17 17:58 | Emergency (ER) | payer OTHER ==
[~2018-06-17] VITALS: Ht 167.6 cm; Wt 120.2 kg
[2018-06-17] MEDS ORDERED: PROTONIX40 MG PO (18:09)
[2018-06-17] MEDS ORDERED: NAPROSYN500 MG PO (19:42)
== END 2018-06-17 19:47 | disposition home or self-care (01) ==
LOC: ED 17:58
DX: M13.861 Other specified arthritis, right knee (principal); Z88.8 Allergy status to other drugs, medicaments and biological substances; Z79.899 Other long term (current) drug therapy; Z90.710 Acquired absence of both cervix and uterus

== ENCOUNTER → 2018-08-19 | Outpatient (CLI) | payer OTHER ==
[~2018-08-19] MED LIST changes: +NAPROSYN500 MG PO; +PROTONIX40 MG PO
[2018-08-22 06:07] LABS: TOTAL PROTEIN, SERUM 7.9 g/dL (6.0-8.5)
[2018-08-22 08:11] LABS: IMMUNOGLOBULIN G, QNT 1816 mg/dL (700-1600); IMMUNOGLOBULIN M, QNT 130 mg/dL (26-217)
[2018-08-22 16:08] LABS: ALBUMIN 3.9 g/dL (2.9-4.4); ALPHA-1-GLOBULIN 0.3 g/dL (0.0-0.4); ALPHA-2-GLOBULIN 0.7 g/dL (0.4-1.0); BETA GLOBULIN 1.2 g/dL (0.7-1.3); GAMMA GLOBULIN 1.8 g/dL (0.4-1.8); M-SPIKE Not Observed g/dL (Not Observed)
[2018-08-24 08:10] LABS: METHYLMALONIC ACID 471 nmol/L (0-378)
== END | disposition home or self-care (01) ==
LOC: LAB 10:31
PROVIDERS: Psychiatry & Neurology Neurology
DX: G60.9 Hereditary and idiopathic neuropathy, unspecified (principal); R20.8 Other disturbances of skin sensation; R41.3 Other amnesia

== ENCOUNTER → 2019-06-16 | Outpatient (CLI) | payer OTHER ==
[~2019-06-16] MED LIST changes: +ATORVASTATIN CA20 M1 PO; +METOPROLOL SUCC25 M2 PO
--- NOTE | ~2019-06-16 | EKG ---
[place], [place] ELECTROCARDIOGRAM REPORT NAME: JEROME WIGGINS UNIT #: [id number] ROOM: DOCTOR: EPIPHANY DRAFT REPORT BIRTHDATE: [birth year] [facility] Test Date: 2019-06-16 Test Time: 10:29:09 Pat Name: JEROME WIGGINS Department: Room: OP Gender: F Senior Accounts Payable Clerk: : 1965 Requested By: TONY AG Order Number: [id number] Reading MD: Paige Salvador MD Measurements Intervals [place] Rate: 88 P: 62 CT: 145 QRS: 1 QRSD: 110 T: 45 QT: 384 QTc: 465 Interpretive Statements Sinus rhythm Electronically Signed On 06-16-2019 9:20:39 PDT by Paige Salvador MD CM:EKGRPT:ELECTROCARDIOGRAM REPORT 1029 0920 TONY AG EPIPHANY DRAFT REPORT TONY AG
== END | disposition home or self-care (01) ==
LOC: RAD 09:59
DX: R06.02 Shortness of breath (principal); C85.90 Non-Hodgkin lymphoma, unspecified, unspecified site; E66.01 Morbid (severe) obesity due to excess calories; I10 Essential (primary) hypertension

== ENCOUNTER 2019-06-28 10:01 | Inpatient (IN) | payer OTHER ==
[~2019-06-28] VITALS: Ht 167.6 cm; Wt 139.8 kg
[2019-06-28] VITALS (7 sets, daily range): BP systolic 115–150; BP diastolic 58–97
--- NOTE | ~2019-06-28 | EKG ---
[place], [place] ELECTROCARDIOGRAM REPORT NAME: JEROME WIGGINS UNIT #: [id number] ROOM: 530 DOCTOR: ELSA DRAFT REPORT BIRTHDATE: [birth year] [facility] Test Date: 2019-06-28 Test Time: 12:53:08 Pat Name: JEROME WIGGINS Department: Room: [facility] Gender: F Chute Tender: : 1965 Requested By: JOSE FRANCISCO POST Order Number: [id number] Reading MD: Jesus Fernandes MD Measurements Intervals [place] Rate: 78 P: 70 OR: 156 QRS: 13 QRSD: 103 T: 56 QT: 400 QTc: 456 Interpretive Statements Sinus rhythm Compared to ECG 06/16/2019 10:29:09 No significant changes Electronically Signed On 06-29-2019 11:31:20 PDT by Jesus Fernandes MD CM:EKGRPT:ELECTROCARDIOGRAM REPORT 1253 1131 JOSE FRANCISCO HADLEY DRAFT REPORT JOSE FRANCISCO POST DO
--- NOTE | ~2019-06-28 | EKG ---
[place], [place] ELECTROCARDIOGRAM REPORT NAME: JEROME WIGGINS UNIT #: [id number] ROOM: 530 DOCTOR: ELSA DRAFT REPORT BIRTHDATE: [birth year] [facility] Test Date: 2019-06-28 Test Time: 10:06:57 Pat Name: JEROME WIGGINS Department: Room: 530 Gender: F Intake Man: : 1965 Requested By: JOSE FRANCISCO POST Order Number: [id number] Reading MD: Jesus Fernandes MD Measurements Intervals [place] Rate: 85 P: 61 [place]: 143 QRS: 5 QRSD: 108 T: 32 QT: 381 QTc: 453 Interpretive Statements Sinus rhythm Low voltage, precordial leads Compared to ECG 06/16/2019 10:29:09 Low QRS voltage now present Electronically Signed On 06-29-2019 11:30:34 PDT by Jesus Fernandes MD CM:EKGRPT:ELECTROCARDIOGRAM REPORT 1006 1130 JOSE FRANCISCO HADLEY DRAFT REPORT JOSE FRANCISCO POST DO
--- NOTE | ~2019-06-28 | EKG ---
[place], [place] ELECTROCARDIOGRAM REPORT NAME: JEROME WIGGINS UNIT #: [id number] ROOM: 530 DOCTOR: ELSA DRAFT REPORT BIRTHDATE: [birth year] [facility] Test Date: 2019-06-28 Test Time: 16:22:27 Pat Name: JEROME WIGGINS Department: Room: [facility] Gender: F Nursing Care Attendant: Bret Daniel : 1965 Requested By: JOSE FRANCISCO POST Order Number: [id number] Reading MD: Jesus Fernandes MD Measurements Intervals [place] Rate: 82 P: 55 [place]: 153 QRS: 8 QRSD: 107 T: 38 QT: 396 QTc: 463 Interpretive Statements Sinus rhythm Baseline wander in lead(s) V5,V6 Compared to ECG 06/16/2019 10:29:09 No significant changes Electronically Signed On 06-29-2019 11:33:06 PDT by Jesus Fernandes MD CM:EKGRPT:ELECTROCARDIOGRAM REPORT 1622 1133 JOSE FRANCISCO HADLEY DRAFT REPORT JOSE FRANCISCO POST DO
[~2019-06-28 10:01] MED LIST changes: -ATORVASTATIN CA20 M1 PO; -METOPROLOL SUCC25 M2 PO
[2019-06-28 10:22] LABS: BASO % 0.5 % (0.0-1.0); EOS # 0.1 10*3/uL (0.0-0.4); EOS % 2.7 % (1.0-4.0); HEMOGLOBIN 10.1 g/dl (12.0-16.0); LYMPH # 1.2 10*3/uL (1.3-4.4); MEAN CORPUSCULAR HGB 24.9 pg (27.0-31.0); MEAN CORPUSCULAR HGB CONC 29.7 g/dl (33.0-37.0); MONO # 0.4 10*3/uL (0.1-1.0); MONO % 9.7 % (3.0-9.0); NEUT # 2.4 10*3/uL (2.3-7.9); NEUT % 58.9 % (47.0-73.0); PLATELET COUNT AUTOMATED 180 10*3/uL (130-400); RED BLOOD COUNT 4.05 10*6/uL (4.10-5.10); RED CELL DISTRI WIDTH 15.1 % (0-14.5); WHITE BLOOD COUNT 4.1 10*3/uL (4.8-10.8)
[2019-06-28 10:35] LABS: ACT PARTIAL THROMBO TIME 24.3 SECONDS (20.0-32.1)
[2019-06-28 10:39] LABS: ALBUMIN 3.5 gm/dl (3.1-4.5); ALKALINE PHOSPHATASE 75 U/L (45-117); BUN 11 mg/dl (7-24); CHLORIDE 103 mmol/L (98-107); CREATININE 0.87 mg/dL (0.55-1.02); SGOT/AST 33 IU/L (3-35); SGPT/ALT 34 U/L (12-78); SODIUM 139 mmol/L (136-145); TOTAL PROTEIN 7.8 gm/dL (6.4-8.2)
[2019-06-28 10:40] LABS: TROPONIN I < 0.015 ng/ml (<0.045)
[2019-06-28] MEDS ORDERED: ATORVASTATIN CA20 M1 PO (12:40)
--- NOTE | 2019-06-28 12:40 | NUR ---
A 54, admitted to 5E, under the services of BRYSON Carlos DO with a diagnosis of CHEST PAIN R/O GA. Chief complaint is CHEST PAIN. Patient arrived via CART from ER. Monitor applied. Initial assessment completed. Vital signs taken and recorded. BRYSON CARLOS DO notified of admission to the unit. Orders received. See assessment for past medical history, medications and allergies. Patient and/or family oriented to unit. [facility] visitation policy reviewed. Clothing/patient valuable form completed. JORDAN HYDE
[2019-06-28] MEDS ORDERED: PROTONIX40 MG PO (12:42)
[2019-06-28] MEDS ORDERED: METOPROLOL SUCC25 M2 PO (12:43)
--- NOTE | 2019-06-28 12:49 | NUR ---
HOME MEDS RECONCILED AT BEDSIDE WITH LIST. NOTED THAT PT STATED SHE TOOK METOPROLOL 25 MG DAILY.HOWEVER PT WAS PRESCRIBED, VIA MED CLAIM HX, METOPROLOL 25 MG BID. PT WAS UNAWARE AND HAD NOT BEEN TAKING IT PRESCRIBED.
--- NOTE | 2019-06-28 19:50 | NUR ---
PATIENT MEDICATED WITH TYLENOL 325 PER PRN ORDER FOR C/O BACK PAIN. SEE EMAR. REINFORCED USE OF CALL LIGHT.
--- NOTE | 2019-06-28 22:00 | NUR ---
PATIENT TAKING ON PHONE. NO S/S OF DISTRESS NOTED. MEDICATION APPEARS EFFECTIVE.
[2019-06-29] VITALS: BP 153/84
[2019-06-29 06:21] LABS: BASO % 0.5 % (0.0-1.0); EOS # 0.2 10*3/uL (0.0-0.4); EOS % 3.9 % (1.0-4.0); HEMATOCRIT 34.1 % (37.0-47.0); HEMOGLOBIN 9.8 g/dl (12.0-16.0); LYMPH # 1.2 10*3/uL (1.3-4.4); LYMPH % 29.6 % (27.0-41.0); MEAN CELL VOLUME 85.3 fl (81.0-99.0); MEAN CORPUSCULAR HGB 24.5 pg (27.0-31.0); MEAN CORPUSCULAR HGB CONC 28.7 g/dl (33.0-37.0); MEAN PLATELET VOLUME 11.3 fl (9.6-12.3); MONO # 0.5 10*3/uL (0.1-1.0); MONO % 11.7 % (3.0-9.0); NEUT # 2.2 10*3/uL (2.3-7.9); NEUT % 54.1 % (47.0-73.0); PLATELET COUNT AUTOMATED 178 10*3/uL (130-400); RED CELL DISTRI WIDTH 15.3 % (0-14.5); WHITE BLOOD COUNT 4.1 10*3/uL (4.8-10.8)
[2019-06-29 06:23] LABS: BUN 13 mg/dl (7-24); CHLORIDE 102 mmol/L (98-107); CHOLESTEROL 129 mg/dL (<200); CREATININE 0.85 mg/dL (0.55-1.02); FREE T4 0.92 ng/dl (0.76-1.46); HDL CHOLESTEROL 38 mg/dl (40-60); LDL CHOLESTEROL 67 mg/dL (9-159); PHOSPHOROUS 4.9 mg/dL (2.5-4.9); POTASSIUM 3.7 mmol/L (3.5-5.1); SODIUM 139 mmol/L (136-145); TRIGLYCERIDES 119 mg/dl (<150); VLDL CHOLESTEROL 24 mg/dL (6-40)
[2019-06-29 06:29] LABS: THYROID STIM HORMONE (HS) 0.375 uIU/ml (0.358-4.75)
--- NOTE | 2019-06-29 07:20 | NUR ---
IN SERVICE COORDINATOR AND STUDENTS ASSUMED CARE OF PT.
[2019-06-29 07:21] LABS: VITAMIN D, 25-HYDROXY 20.6 ng/mL (30-100)
[2019-06-29 08:00] VITALS: BP 132/68
--- NOTE | 2019-06-29 08:00 | NUR ---
MEDICATED FOR HEADACHE 10/10 RIGHT SIDE TEMERAL AREA. MEDICATED WITH TYLENOL REQUESTED. REVIEWED TYLENOL ALLERGY PATIENT DENIES. REMOVED FROM ALLERGY SCREEN. JESSICA JASON OVCT-SN / GAMAL STOCKTON BSN CLINICAL INSTRUCTOR.
--- NOTE | 2019-06-29 11:25 | NUR ---
PT C/O BACK PAIN ,09/06. NOTIFIED SHAILESH CALERO,TRAVEL JOURNALIST
[2019-06-29 12:00] VITALS: BP 130/80
--- NOTE | 2019-06-29 12:40 | NUR ---
REPORT RECIEVED FROM [facility] STORY ANALYST.
--- NOTE | 2019-06-29 14:33 | NUR ---
Software Writer in to talk to patient. Patient states lives at HOME with SON, DAUGHTER IN LAW, GRANDKIDS. There are FEW steps in the home. Physician: S Pharmacy: [facility] [place] health services: NONE Patient's level of ADLs: INDEPENDENT Patient has working utilities: YES DME: [facility] Follow-up physician's appointment after d/c: WILL BE MADE BY HOSPITALIST NURSE DIRECTOR ON DISCHARGE Does patient want to access PORTAL?: NO Discharge plan PT STATES SHE IS LIVING WITH HER SON, DIL AND GRANDKIDS. STATES SHE WILL HAVE NO NEEDS ON DISCHARGE. WILL RETURN HOME WITH FAMILY. WILL CONTINUE TO MONITOR. SON WILL DC PT HOME ON DISCHARGE.. ANGELA AUGUSTIN
--- NOTE | 2019-06-29 14:40 | NUR ---
Discharge instructions reviewed with patient/family. Patient receptive and verbalizes understanding. Follow-up care arranged. Written instructions given to patient/family. JORDAN HYDE
== END 2019-06-29 14:40 | disposition home or self-care (01) | DRG 206 ==
LOC: ED 10:01 → EDHOLD 11:45 → 5E 11:45
PROVIDERS: Emergency Medicine; Internal Medicine; ADMIT Internal Medicine
DX: M94.0 Chondrocostal junction syndrome [Tietze] (principal); J98.11 Atelectasis; E78.00 Pure hypercholesterolemia, unspecified; I10 Essential (primary) hypertension; E11.65 Type 2 diabetes mellitus with hyperglycemia; D64.9 Anemia, unspecified; D72.810 Lymphocytopenia; R79.82 Elevated C-reactive protein (CRP); E78.5 Hyperlipidemia, unspecified; K74.60 Unspecified cirrhosis of liver; Z90.710 Acquired absence of both cervix and uterus; Z87.891 Personal history of nicotine dependence; Z79.899 Other long term (current) drug therapy; Z88.8 Allergy status to other drugs, medicaments and biological substances

== ENCOUNTER → 2019-07-02 | Outpatient (CLI) | payer OTHER ==
[~2019-07-02] MED LIST changes: +ATORVASTATIN CA20 M1 PO; +METOPROLOL SUCC25 M2 PO
--- NOTE | ~2019-07-02 | ST ---
[place], [place] EXERCISE STRESS TEST REPORT NAME: JEROME WIGGINS [facility] #: [id number] UNIT #: [id number] ROOM: DOCTOR: OSCAR LAINEZ MD BIRTHDATE: [birth year] DOS: 07/02/2019 LEXISCAN STRESS EKG REFERRING PHYSICIAN: Yessi Gonzalez NP INDICATIONS: Precordial chest pain. The patient underwent standard protocol Lexiscan stress EKG. Baseline EKG is normal sinus rhythm, nonspecific ST-T wave changes, baseline heart rate is 96 with a blood pressure 124/80. The patient's peak heart rate was 112 with a blood pressure of 118/70. The patient had no chest pain, no EKG changes, no arrhythmias. SUMMARY OF FINDINGS: Unremarkable Lexiscan stress EKG. Please see separate report for perfusion scan imaging results. OSCAR LAINEZ MD CM:STRESS:EXERCISE STRESS TEST REPORT 1224 1342 OSCAR LAINEZ MD
--- NOTE | 2019-07-02 11:51 | NUR ---
INFORMED SIGNED CONSENT OBTAINED FOR LEXISCAN STRESS TEST WITH DR LAINEZ. RESTING EKG NSR HR 96 BP 124/80. PULSE OX 96% LUNGS CLEARLY DIMINISHED. PT COMPLETED ONE MINUTE OF A LEXISCAN STRESS TEST WITH PT RECEIVING LEXISCAN 0.4MG IV OVER 10 SECONDS. OCCASIONAL PVC NOTED. NO ST CHANGES SEEN. LAST RECOVERY HR OF 104 BP 122/84. PT HAD NO SYMPTOMS WITH INJECTION. PT IN STABLE CONDITION, AWAITING NUCLEAR IMAGES.
== END | disposition home or self-care (01) ==
LOC: CARD 00:31
DX: R07.2 Precordial pain (principal)

== ENCOUNTER → 2019-08-10 | Outpatient (CLI) | payer OTHER | END | disposition home or self-care (01) | LOC: US 09:55 | DX: K76.0 Fatty (change of) liver, not elsewhere classified (principal); M54.5 Low back pain; E66.01 Morbid (severe) obesity due to excess calories; I10 Essential (primary) hypertension; E11.9 Type 2 diabetes mellitus without complications; R26.2 Difficulty in walking, not elsewhere classified; R53.1 Weakness ==

== ENCOUNTER → 2019-08-22 | Outpatient (CLI) | payer OTHER | END | disposition home or self-care (01) | LOC: D 08:58 | DX: K76.0 Fatty (change of) liver, not elsewhere classified (principal) ==

== ENCOUNTER 2019-12-27 15:48 | Emergency (ER) | payer OTHER ==
[~2019-12-27] VITALS: Ht 167.6 cm; Wt 132.4 kg
[2019-12-27 16:40] LABS: BASO % 0.3 % (0.0-1.0); EOS # 0.1 10*3/uL (0.0-0.4); EOS % 2.2 % (1.0-4.0); HEMOGLOBIN 13.5 g/dl (12.0-16.0); LYMPH # 1.8 10*3/uL (1.3-4.4); LYMPH % 29.2 % (27.0-41.0); MEAN CELL VOLUME 94.7 fl (81.0-99.0); MEAN CORPUSCULAR HGB 31.2 pg (27.0-31.0); MEAN CORPUSCULAR HGB CONC 32.9 g/dl (33.0-37.0); MEAN PLATELET VOLUME 10.4 fl (9.6-12.3); MONO # 0.5 10*3/uL (0.1-1.0); MONO % 8.5 % (3.0-9.0); NEUT # 3.6 10*3/uL (2.3-7.9); NEUT % 59.5 % (47.0-73.0); PLATELET COUNT AUTOMATED 144 10*3/uL (130-400); RED BLOOD COUNT 4.33 10*6/uL (4.10-5.10); RED CELL DISTRI WIDTH 12.5 % (0-14.5)
[2019-12-27 16:53] LABS: ACT PARTIAL THROMBO TIME 23.1 SECONDS (20.0-32.1)
[2019-12-27 16:56] LABS: ALKALINE PHOSPHATASE 65 U/L (45-117); BUN 12 mg/dl (7-24); CHLORIDE 107 mmol/L (98-107); CREATININE 0.77 mg/dL (0.55-1.02); POTASSIUM 3.7 mmol/L (3.5-5.1); SGOT/AST 31 IU/L (3-35); SGPT/ALT 33 U/L (12-78); SODIUM 139 mmol/L (136-145); TOTAL PROTEIN 7.7 gm/dL (6.4-8.2)
[2019-12-27 17:01] LABS: TROPONIN I < 0.015 ng/ml (<0.045)
[2019-12-27] MEDS ORDERED: CLINDAMYCIN HC300 MG PO (18:52)
== END 2019-12-27 19:05 | disposition home or self-care (01) ==
LOC: ED 15:48
PROVIDERS: Emergency Medicine
DX: L03.116 Cellulitis of left lower limb (principal); K21.9 Gastro-esophageal reflux disease without esophagitis; I10 Essential (primary) hypertension; E78.5 Hyperlipidemia, unspecified; M19.90 Unspecified osteoarthritis, unspecified site; E66.01 Morbid (severe) obesity due to excess calories; R79.1 Abnormal coagulation profile; Z87.891 Personal history of nicotine dependence; Z88.8 Allergy status to other drugs, medicaments and biological substances; Z88.1 Allergy status to other antibiotic agents; Z79.899 Other long term (current) drug therapy

== ENCOUNTER → 2020-09-03 | Outpatient (CLI) | payer OTHER ==
[~2020-09-03] MED LIST changes: +CLINDAMYCIN HC300 MG PO
== END | disposition home or self-care (01) ==
LOC: COVID19 00:28
PROVIDERS: ATTEND Nurse Practitioner Family
DX: Z20.828 Contact with and (suspected) exposure to other viral communicable diseases (principal)

== ENCOUNTER → 2021-01-27 | Outpatient (CLI) | payer OTHER | END | disposition home or self-care (01) | LOC: US 12:30 | PROVIDERS: ATTEND Nurse Practitioner Family | DX: E11.9 Type 2 diabetes mellitus without complications (principal); R20.0 Anesthesia of skin; R09.89 Other specified symptoms and signs involving the circulatory and respiratory systems; M25.562 Pain in left knee ==

== ENCOUNTER → 2021-08-04 | Outpatient (CLI) | payer OTHER | END | disposition home or self-care (01) | LOC: MAMMO 07-07 17:00 | PROVIDERS: ATTEND Nurse Practitioner Family | DX: Z12.31 Encounter for screening mammogram for malignant neoplasm of breast (principal) ==

== ENCOUNTER → 2021-11-03 | Outpatient (CLI) | payer OTHER | END | disposition home or self-care (01) | LOC: RAD 13:25 | PROVIDERS: ATTEND Nurse Practitioner Family | DX: R06.2 Wheezing (principal); R05.9 Cough, unspecified; R06.02 Shortness of breath ==

== ENCOUNTER → 2022-09-10 | Outpatient (CLI) | payer OTHER ==
[2022-09-10 10:24] LABS: BASO % 0.6 % (0.0-1.0); EOS # 0.1 10*3/uL (0.0-0.4); EOS % 2.4 % (1.0-4.0); HEMATOCRIT 46.7 % (37.0-47.0); LYMPH # 1.6 10*3/uL (1.3-4.4); LYMPH % 32.3 % (27.0-41.0); MEAN CELL VOLUME 96.1 fl (81.0-99.0); MEAN CORPUSCULAR HGB 32.1 pg (27.0-31.0); MEAN CORPUSCULAR HGB CONC 33.4 g/dl (33.0-37.0); MEAN PLATELET VOLUME 10.4 fl (9.6-12.3); MONO # 0.4 10*3/uL (0.1-1.0); MONO % 8.2 % (3.0-9.0); NEUT # 2.8 10*3/uL (2.3-7.9); NEUT % 56.3 % (47.0-73.0); PLATELET COUNT AUTOMATED 155 10*3/uL (130-400); RED BLOOD COUNT 4.86 10*6/uL (4.10-5.10); RED CELL DISTRI WIDTH 12.1 % (0-14.5)
[2022-09-10 10:43] LABS: ALKALINE PHOSPHATASE 65 U/L (45-117); BUN 16 mg/dl (7-24); CHLORIDE 112 mmol/L (98-107); CHOLESTEROL 145 mg/dL (<200); CREATININE 0.77 mg/dL (0.55-1.02); LDL CHOLESTEROL 68 mg/dL (9-159); POTASSIUM 3.7 mmol/L (3.5-5.1); SGOT/AST 21 IU/L (3-35); SGPT/ALT 32 U/L (12-78); SODIUM 145 mmol/L (136-145); TOTAL PROTEIN 7.4 gm/dL (6.4-8.2); TRIGLYCERIDES 149 mg/dl (<150)
== END | disposition home or self-care (01) ==
LOC: LAB 09:36
PROVIDERS: ATTEND Nurse Practitioner Family
DX: M17.12 Unilateral primary osteoarthritis, left knee (principal); I10 Essential (primary) hypertension; E11.9 Type 2 diabetes mellitus without complications; D50.8 Other iron deficiency anemias; M25.562 Pain in left knee

== ENCOUNTER → 2023-01-29 | Outpatient (CLI) | payer OTHER ==
[2023-01-29 10:00] LABS: BASO % 0.5 % (0.0-1.0); EOS # 0.2 10*3/uL (0.0-0.4); EOS % 3.2 % (1.0-4.0); HEMATOCRIT 48.3 % (37.0-47.0); LYMPH # 2.3 10*3/uL (1.3-4.4); LYMPH % 35.7 % (27.0-41.0); MEAN CELL VOLUME 98.4 fl (81.0-99.0); MEAN CORPUSCULAR HGB 31.8 pg (27.0-31.0); MEAN CORPUSCULAR HGB CONC 32.3 g/dl (33.0-37.0); MEAN PLATELET VOLUME 9.9 fl (9.6-12.3); MONO # 0.6 10*3/uL (0.1-1.0); MONO % 8.7 % (3.0-9.0); NEUT # 3.2 10*3/uL (2.3-7.9); NEUT % 51.4 % (47.0-73.0); PLATELET COUNT AUTOMATED 174 10*3/uL (130-400); RED BLOOD COUNT 4.91 10*6/uL (4.10-5.10); RED CELL DISTRI WIDTH 12.5 % (0-14.5); WHITE BLOOD COUNT 6.3 10*3/uL (4.8-10.8)
[2023-01-29 10:24] LABS: ALKALINE PHOSPHATASE 68 U/L (46-116); BUN 13 mg/dl (9-23); CHLORIDE 101 mmol/L (98-107); CHOLESTEROL 239 mg/dL (<200); LDL CHOLESTEROL 158 mg/dL (9-159); POTASSIUM 4.1 mmol/L (3.4-5.1); SGPT/ALT 35 U/L (10-49); TOTAL PROTEIN 7.9 gm/dL (6.0-8.0); TRIGLYCERIDES 137 mg/dl (<150)
== END | disposition home or self-care (01) ==
LOC: LAB 09:22
PROVIDERS: ATTEND Nurse Practitioner Family
DX: E11.9 Type 2 diabetes mellitus without complications (principal); E78.00 Pure hypercholesterolemia, unspecified; I10 Essential (primary) hypertension; D72.819 Decreased white blood cell count, unspecified; D50.8 Other iron deficiency anemias

== ENCOUNTER → 2023-03-29 | Outpatient (CLI) | payer OTHER ==
[2023-03-29 08:59] LABS: BASO % 0.5 % (0.0-1.0); EOS # 0.2 10*3/uL (0.0-0.4); EOS % 3.9 % (1.0-4.0); HEMATOCRIT 48.4 % (37.0-47.0); LYMPH # 1.8 10*3/uL (1.3-4.4); LYMPH % 30.6 % (27.0-41.0); MEAN CELL VOLUME 94.7 fl (81.0-99.0); MEAN CORPUSCULAR HGB 31.9 pg (27.0-31.0); MEAN CORPUSCULAR HGB CONC 33.7 g/dl (33.0-37.0); MEAN PLATELET VOLUME 10.1 fl (9.6-12.3); MONO # 0.5 10*3/uL (0.1-1.0); MONO % 7.9 % (3.0-9.0); NEUT # 3.4 10*3/uL (2.3-7.9); NEUT % 56.9 % (47.0-73.0); PLATELET COUNT AUTOMATED 165 10*3/uL (130-400); RED BLOOD COUNT 5.11 10*6/uL (4.10-5.10); RED CELL DISTRI WIDTH 12.2 % (0-14.5); WHITE BLOOD COUNT 5.9 10*3/uL (4.8-10.8)
[2023-03-29 09:04] LABS: BILIRUBIN Negative (Negative); BLOOD Negative (Negative); CLARITY Clear (Clear); COLOR Yellow (Yellow); GLUCOSE Negative (Negative); KETONE Trace (Negative); LEUKO ESTERASE Trace (Negative); NITRITE Negative (Negative); SPECIFIC GRAVITY 1.025 (1.001-1.030)
[2023-03-29 09:09] LABS: INTERNATIONAL NORM RATIO 1.1 (2.0-3.5)
[2023-03-29 09:48] LABS: ALKALINE PHOSPHATASE 73 U/L (46-116); BUN 12 mg/dl (9-23); CHLORIDE 98 mmol/L (98-107); POTASSIUM 3.8 mmol/L (3.4-5.1); SGPT/ALT 28 U/L (10-49); TOTAL PROTEIN 8.1 gm/dL (6.0-8.0)
[2023-03-29 09:55] LABS: MUCOUS TRACE
[2023-03-29 09:56] LABS: BACTERIA TRACE
== END | disposition home or self-care (01) ==
LOC: LAB 08:28
PROVIDERS: ATTEND Specialist
DX: Z01.810 Encounter for preprocedural cardiovascular examination (principal); Z01.818 Encounter for other preprocedural examination; I49.3 Ventricular premature depolarization

== ENCOUNTER → 2023-04-12 | Outpatient (CLI) | payer OTHER | END | disposition home or self-care (01) | LOC: CARD 08:00 | PROVIDERS: ATTEND Internal Medicine Cardiovascular Disease | DX: Z01.810 Encounter for preprocedural cardiovascular examination (principal); E66.01 Morbid (severe) obesity due to excess calories; K21.9 Gastro-esophageal reflux disease without esophagitis; E78.5 Hyperlipidemia, unspecified; R06.09 Other forms of dyspnea; Z87.891 Personal history of nicotine dependence ==

== ENCOUNTER → 2023-05-30 | Outpatient (CLI) | payer OTHER ==
[2023-05-30 14:02] LABS: BASO % 0.5 % (0.0-1.0); EOS # 0.2 10*3/uL (0.0-0.4); EOS % 2.9 % (1.0-4.0); HEMATOCRIT 44.8 % (37.0-47.0); LYMPH # 1.8 10*3/uL (1.3-4.4); LYMPH % 31.7 % (27.0-41.0); MEAN CELL VOLUME 93.7 fl (81.0-99.0); MEAN CORPUSCULAR HGB 31.6 pg (27.0-31.0); MEAN CORPUSCULAR HGB CONC 33.7 g/dl (33.0-37.0); MEAN PLATELET VOLUME 9.9 fl (9.6-12.3); MONO # 0.3 10*3/uL (0.1-1.0); MONO % 5.7 % (3.0-9.0); NEUT # 3.4 10*3/uL (2.3-7.9); NEUT % 58.9 % (47.0-73.0); PLATELET COUNT AUTOMATED 233 10*3/uL (130-400); RED BLOOD COUNT 4.78 10*6/uL (4.10-5.10); RED CELL DISTRI WIDTH 12.6 % (0-14.5); WHITE BLOOD COUNT 5.8 10*3/uL (4.8-10.8)
[2023-05-30 14:32] LABS: ALKALINE PHOSPHATASE 75 U/L (46-116); BUN 10 mg/dl (9-23); CHLORIDE 102 mmol/L (98-107); CHOLESTEROL 140 mg/dL (<200); LDL CHOLESTEROL 64 mg/dL (9-159); POTASSIUM 3.8 mmol/L (3.4-5.1); SGPT/ALT 20 U/L (10-49); TOTAL PROTEIN 7.8 gm/dL (6.0-8.0); TRIGLYCERIDES 181 mg/dl (<150)
== END | disposition home or self-care (01) ==
LOC: LAB 13:32
PROVIDERS: ATTEND Nurse Practitioner Family
DX: I10 Essential (primary) hypertension (principal); E11.9 Type 2 diabetes mellitus without complications; D50.8 Other iron deficiency anemias; E78.00 Pure hypercholesterolemia, unspecified; M25.562 Pain in left knee

== ENCOUNTER 2023-06-10 19:39 | Emergency (ER) | payer OTHER ==
[2023-06-10 20:06] LABS: BILIRUBIN Negative (Negative); BLOOD Negative (Negative); CLARITY Clear (Clear); COLOR Yellow (Yellow); GLUCOSE Negative (Negative); KETONE Negative (Negative); LEUKO ESTERASE 1+ (Negative); NITRITE Negative (Negative); SPECIFIC GRAVITY 1.015 (1.001-1.030)
[2023-06-10 20:24] LABS: BACTERIA 2+; RBC 0-2 rbc/hpf (0-2)
[2023-06-10] MEDS ORDERED: CIPRO500 MG PO (20:54)
== END 2023-06-10 20:56 | disposition home or self-care (01) ==
LOC: ED 19:39
PROVIDERS: Internal Medicine
DX: N39.0 Urinary tract infection, site not specified (principal); Z88.8 Allergy status to other drugs, medicaments and biological substances; Z88.6 Allergy status to analgesic agent; Z88.1 Allergy status to other antibiotic agents; Z79.2 Long term (current) use of antibiotics; Z79.899 Other long term (current) drug therapy; Z98.890 Other specified postprocedural states; Z90.711 Acquired absence of uterus with remaining cervical stump; Z87.891 Personal history of nicotine dependence

== ENCOUNTER → 2023-07-20 | Outpatient (CLI) | payer OTHER | END | disposition home or self-care (01) | LOC: RAD 11:00 | PROVIDERS: ATTEND Nurse Practitioner Family | DX: R00.2 Palpitations (principal); I10 Essential (primary) hypertension; M54.9 Dorsalgia, unspecified; K21.9 Gastro-esophageal reflux disease without esophagitis; Z85.028 Personal history of other malignant neoplasm of stomach ==

== ENCOUNTER → 2023-09-02 | Outpatient (CLI) | payer OTHER | END | disposition home or self-care (01) | LOC: CT 00:10 | PROVIDERS: ATTEND Nurse Practitioner Family | DX: K74.60 Unspecified cirrhosis of liver (principal); R30.0 Dysuria; I51.7 Cardiomegaly; I70.0 Atherosclerosis of aorta; M47.815 Spondylosis without myelopathy or radiculopathy, thoracolumbar region; Z90.710 Acquired absence of both cervix and uterus ==

== ENCOUNTER → 2023-09-07 | Outpatient (CLI) | payer OTHER ==
[2023-09-07 09:14] LABS: BASO % 0.6 % (0.0-1.0); EOS # 0.1 10*3/uL (0.0-0.4); HEMATOCRIT 47.1 % (37.0-47.0); LYMPH # 1.4 10*3/uL (1.3-4.4); MEAN CELL VOLUME 93.5 fl (81.0-99.0); MEAN CORPUSCULAR HGB CONC 33.1 g/dl (33.0-37.0); MEAN PLATELET VOLUME 9.8 fl (9.6-12.3); MONO # 0.4 10*3/uL (0.1-1.0); NEUT # 2.7 10*3/uL (2.3-7.9); NEUT % 57.8 % (47.0-73.0); PLATELET COUNT AUTOMATED 161 10*3/uL (130-400); RED BLOOD COUNT 5.04 10*6/uL (4.10-5.10); RED CELL DISTRI WIDTH 13.3 % (0-14.5); WHITE BLOOD COUNT 4.7 10*3/uL (4.8-10.8)
[2023-09-07 09:46] LABS: ALKALINE PHOSPHATASE 74 U/L (46-116); BUN 10 mg/dl (9-23); CHLORIDE 106 mmol/L (98-107); SGPT/ALT 26 U/L (10-49); TOTAL PROTEIN 7.9 gm/dL (6.0-8.0)
[2023-09-08 04:06] LABS: AFP TUMOR MARKER 6.1 ng/mL (0.0-9.2)
[2023-09-08 06:08] LABS: HEPATITIS B SURFACE AB Non Reactive (.); HEPATITIS B SURFACE AG Negative (Negative)
== END | disposition home or self-care (01) ==
LOC: LAB 08:50
PROVIDERS: Nurse Practitioner Family; ATTEND Physician Assistant
DX: E11.9 Type 2 diabetes mellitus without complications (principal); Z11.59 Encounter for screening for other viral diseases; K74.60 Unspecified cirrhosis of liver

== ENCOUNTER → 2023-11-07 | Outpatient (CLI) | payer OTHER ==
[2023-11-07 17:31] LABS: BASO % 0.5 % (0.0-1.0); EOS # 0.1 10*3/uL (0.0-0.4); EOS % 2.2 % (1.0-4.0); HEMATOCRIT 44.4 % (37.0-47.0); LYMPH # 1.9 10*3/uL (1.3-4.4); LYMPH % 32.6 % (27.0-41.0); MEAN CELL VOLUME 93.1 fl (81.0-99.0); MEAN CORPUSCULAR HGB 31.7 pg (27.0-31.0); MEAN PLATELET VOLUME 9.9 fl (9.6-12.3); MONO # 0.5 10*3/uL (0.1-1.0); MONO % 9.1 % (3.0-9.0); NEUT # 3.2 10*3/uL (2.3-7.9); NEUT % 55.4 % (47.0-73.0); PLATELET COUNT AUTOMATED 176 10*3/uL (130-400); RED BLOOD COUNT 4.77 10*6/uL (4.10-5.10); RED CELL DISTRI WIDTH 12.5 % (0-14.5); WHITE BLOOD COUNT 5.8 10*3/uL (4.8-10.8)
== END | disposition home or self-care (01) ==
LOC: LAB 17:05
PROVIDERS: ATTEND Specialist
DX: Z13.220 Encounter for screening for lipoid disorders (principal); C54.1 Malignant neoplasm of endometrium; Z79.899 Other long term (current) drug therapy

== ENCOUNTER → 2024-01-21 | Outpatient (CLI) | payer OTHER ==
[2024-01-21 09:09] LABS: BASO % 0.4 % (0.0-1.0); EOS # 0.1 10*3/uL (0.0-0.4); EOS % 2.8 % (1.0-4.0); HEMATOCRIT 48.2 % (37.0-47.0); LYMPH # 1.5 10*3/uL (1.3-4.4); LYMPH % 30.3 % (27.0-41.0); MEAN CELL VOLUME 95.8 fl (81.0-99.0); MEAN CORPUSCULAR HGB CONC 32.4 g/dl (33.0-37.0); MONO # 0.6 10*3/uL (0.1-1.0); NEUT # 2.8 10*3/uL (2.3-7.9); NEUT % 55.3 % (47.0-73.0); PLATELET COUNT AUTOMATED 147 10*3/uL (130-400); RED BLOOD COUNT 5.03 10*6/uL (4.10-5.10); RED CELL DISTRI WIDTH 12.3 % (0-14.5)
[2024-01-21 09:31] LABS: ALKALINE PHOSPHATASE 74 U/L (46-116); BUN 9 mg/dl (9-23); CHLORIDE 106 mmol/L (98-107); CHOLESTEROL 159 mg/dL (<200); LDL CHOLESTEROL 81 mg/dL (9-159); SGPT/ALT 36 U/L (5-49); TOTAL PROTEIN 7.4 gm/dL (6.0-8.0); TRIGLYCERIDES 147 mg/dl (<150)
== END | disposition home or self-care (01) ==
LOC: LAB 08:54
PROVIDERS: ATTEND Nurse Practitioner Family
DX: I10 Essential (primary) hypertension (principal); E78.00 Pure hypercholesterolemia, unspecified; E11.9 Type 2 diabetes mellitus without complications; D50.8 Other iron deficiency anemias; K21.9 Gastro-esophageal reflux disease without esophagitis; M54.9 Dorsalgia, unspecified; G89.29 Other chronic pain; N39.0 Urinary tract infection, site not specified

== ENCOUNTER → 2024-05-29 | Outpatient (CLI) | payer OTHER ==
[2024-05-29 09:36] LABS: BASO % 0.6 % (0.0-1.0); EOS # 0.1 10*3/uL (0.0-0.4); EOS % 2.5 % (1.0-4.0); HEMATOCRIT 48.3 % (37.0-47.0); LYMPH # 1.7 10*3/uL (1.3-4.4); LYMPH % 33.3 % (27.0-41.0); MEAN CELL VOLUME 93.8 fl (81.0-99.0); MEAN CORPUSCULAR HGB CONC 34.2 g/dl (33.0-37.0); MEAN PLATELET VOLUME 10.3 fl (9.6-12.3); MONO # 0.5 10*3/uL (0.1-1.0); MONO % 9.2 % (3.0-9.0); NEUT # 2.8 10*3/uL (2.3-7.9); NEUT % 54.2 % (47.0-73.0); PLATELET COUNT AUTOMATED 166 10*3/uL (130-400); RED BLOOD COUNT 5.15 10*6/uL (4.10-5.10); RED CELL DISTRI WIDTH 12.4 % (0-14.5); WHITE BLOOD COUNT 5.1 10*3/uL (4.8-10.8)
[2024-05-29 09:52] LABS: URINE CREATININE RANDOM 60.33 mg/dL
[2024-05-29 10:18] LABS: ALKALINE PHOSPHATASE 75 U/L (46-116); BUN 16 mg/dl (9-23); CHLORIDE 104 mmol/L (98-107); CHOLESTEROL 160 mg/dL (<200); LDL CHOLESTEROL 82 mg/dL (9-159); POTASSIUM 4.1 mmol/L (3.4-5.1); SGPT/ALT 38 U/L (5-49); TOTAL PROTEIN 7.8 gm/dL (6.0-8.0); TRIGLYCERIDES 133 mg/dl (<150); URIC ACID 5.4 mg/dL (3.1-7.8)
[2024-05-30 14:08] LABS: ANTI-DSDNA ANTIBODIES 2 IU/mL (0-9); ANTI-RNP ANTIBODIES <0.2 AI (0.0-0.9); ANTICHROMATIN ANTIBODIES 0.2 AI (0.0-0.9); ANTISCLERODERMA-70 AB <0.2 AI (0.0-0.9); SJOGREN ANTI-SS-A 0.3 AI (0.0-0.9); SJOREN AB, ANTI-SS-B <0.2 AI (0.0-0.9)
== END | disposition home or self-care (01) ==
LOC: LAB 09:02
PROVIDERS: ATTEND Nurse Practitioner Family
DX: E78.00 Pure hypercholesterolemia, unspecified (principal); I10 Essential (primary) hypertension; E11.9 Type 2 diabetes mellitus without complications; D50.8 Other iron deficiency anemias; K21.9 Gastro-esophageal reflux disease without esophagitis; R10.13 Epigastric pain; M25.50 Pain in unspecified joint; M25.511 Pain in right shoulder; M25.531 Pain in right wrist; M25.521 Pain in right elbow

== ENCOUNTER → 2024-06-12 | Outpatient (CLI) | payer OTHER | END | disposition home or self-care (01) | LOC: MAMMO 09:53 | PROVIDERS: ATTEND Nurse Practitioner Family | DX: Z12.31 Encounter for screening mammogram for malignant neoplasm of breast (principal) ==

== ENCOUNTER → 2025-01-11 | Outpatient (CLI) | payer OTHER ==
[2025-01-11 09:34] LABS: BASO % 0.3 % (0.0-1.0); EOS # 0.1 10*3/uL (0.0-0.4); EOS % 2.3 % (1.0-4.0); HEMATOCRIT 46.4 % (37.0-47.0); MEAN CELL VOLUME 96.1 fl (81.0-99.0); MEAN CORPUSCULAR HGB 31.5 pg (27.0-31.0); MEAN CORPUSCULAR HGB CONC 32.8 g/dl (33.0-37.0); MEAN PLATELET VOLUME 10.1 fl (9.6-12.3); MONO # 0.4 10*3/uL (0.1-1.0); MONO % 9.5 % (3.0-9.0); NEUT # 2.3 10*3/uL (2.3-7.9); NEUT % 59.4 % (47.0-73.0); PLATELET COUNT AUTOMATED 155 10*3/uL (130-400); RED BLOOD COUNT 4.83 10*6/uL (4.10-5.10); RED CELL DISTRI WIDTH 12.5 % (0-14.5); WHITE BLOOD COUNT 3.9 10*3/uL (4.8-10.8)
[2025-01-11 09:53] LABS: ALKALINE PHOSPHATASE 74 U/L (46-116); BUN 10 mg/dl (9-23); CHLORIDE 104 mmol/L (98-107); CHOLESTEROL 135 mg/dL (<200); LDL CHOLESTEROL 72 mg/dL (9-159); POTASSIUM 4.2 mmol/L (3.4-5.1); SGPT/ALT 50 U/L (5-49); TOTAL PROTEIN 7.1 gm/dL (6.0-8.0); TRIGLYCERIDES 102 mg/dl (<150)
== END | disposition home or self-care (01) ==
LOC: LAB 09:02
PROVIDERS: ATTEND Nurse Practitioner Family
DX: E11.9 Type 2 diabetes mellitus without complications (principal); I10 Essential (primary) hypertension; E78.2 Mixed hyperlipidemia; G89.29 Other chronic pain; E55.9 Vitamin D deficiency, unspecified

== ENCOUNTER → 2025-05-30 | Outpatient (CLI) | payer OTHER ==
[2025-05-30 09:23] LABS: BASO # 0.0 10*3/uL (0.0-0.1); BASO % 0.5 % (0.0-1.0); EOS # 0.1 10*3/uL (0.0-0.4); EOS % 2.0 % (1.0-4.0); MEAN CELL VOLUME 93.6 fl (81.0-99.0); MEAN CORPUSCULAR HGB 31.4 pg (27.0-31.0); MEAN PLATELET VOLUME 10.2 fl (9.6-12.3); MONO # 0.4 10*3/uL (0.1-1.0); MONO % 10.9 % (3.0-9.0); NEUT # 2.1 10*3/uL (2.3-7.9); NEUT % 52.1 % (47.0-73.0); NUCLEATED RED BLOOD CELL 0.0 % (0.0-0.0); NUCLEATED RED BLOOD CELL 0.0 10*3/uL (0.0-0.0); PLATELET COUNT AUTOMATED 144 10*3/uL (130-400); RED CELL DISTRI WIDTH 11.9 % (0-14.5)
[2025-05-30 10:17] LABS: BUN 11 mg/dl (9-23); SGPT/ALT 33 U/L (5-49)
== END | disposition home or self-care (01) ==
LOC: LAB 08:49
PROVIDERS: ATTEND Nurse Practitioner Family
DX: I10 Essential (primary) hypertension (principal); E11.9 Type 2 diabetes mellitus without complications; E78.00 Pure hypercholesterolemia, unspecified; K21.9 Gastro-esophageal reflux disease without esophagitis; D50.8 Other iron deficiency anemias; E55.9 Vitamin D deficiency, unspecified; K74.60 Unspecified cirrhosis of liver; G89.29 Other chronic pain